=== PATIENT | female | born 1965 | race Caucasian/White ===

== ENCOUNTER 2020-01-17 08:58 | Outpatient (CLI) | payer OTHER, SELFPAY ==
--- NOTE | ~2020-01-17 | XR_ITS ---
EXAMINATION:XR_CERV2-3V_CR DATE: 01/17/2020 09:51 INDICATION: Neck pain TECHNIQUE: AP, lateral, lateral swimmers and odontoid views of the cervical spine are provided. COMPARISON: 02/02/2019 FINDINGS: Changes of fusion from C5 through C7 are again noted. There is unchanged moderate loss of i ntervertebral disc space height at C4-5 and C7-T1. No fracture is identified. The odontoid is intact. There is moderate to severe multilevel facet osteoarthritis. The prevertebral soft tissues are james l. IMPRESSION: 1. Moderate cervical spondylosis and changes of fusion without acute findings or significant interval change. Reviewed, dictated and finalized at location A. IMPRESSION: 1. Moderate cervical spondylosis and changes of fusion without acute findings o r significant interval change.
--- NOTE | ~2020-01-17 | XR_ITS ---
EXAMINATION: XR lumbar spine 2-3V DATE: 01/17/2020 09:54 INDICATION: Low back pain TECHNIQUE: Anteroposterior and lateral views of the lumbar spine, and cone-down lateral view of the l umbosacral junction were obtained. COMPARISON: 05/03/2017 FINDINGS: There are 3 mm of stable anterolisthesis of L4 on L5. The vertebral body heights and interv ertebral disc spaces are maintained. Degenerative osteophytes project from the anterior endplates of multiple vertebral bodies. There is moderate facet osteoarthritis throughout the lumbar spine. Phlebo liths are noted in the pelvis. The bowel gas pattern is normal. IMPRESSION: 1. Moderate lumbar spondylosis without acute findings or significant interval change. Reviewed, dictated and finalized at location A. IMPRESSION: 1. Moderate lumbar spondylosis without acute findings or significant interval yeimi mckeon
== END 2020-01-17 08:59 | disposition home or self-care (01) ==
LOC: CHSIMG 09:00
PROVIDERS: PCP Family Medicine; Visit Provider Family Medicine
DX: M54.2 Cervicalgia (principal); M54.5 Low back pain
CPT/HCPCS: 72040; 72100

== ENCOUNTER → 2020-02-27 08:44 | Outpatient (CLI) | payer OTHER, SELFPAY ==
--- NOTE | ~2020-02-27 | MR_ITS ---
EXAMINATION: MR cervical spine wo/w con DATE: 02/27/2020 09:53 INDICATION: Cervicalgia TECHNIQUE: Magnetic resonance imaging (MRI) of the cervical spine was performed without and with 17 m L Multihance intravenous contrast. Sequences included sagittal T2-weighted FSE, sagittal T2-weighted FS FSE, sagittal T1-weighted FSE, axial T2-weighted FSE, and axial T1-weighted SE. Postcontrast seque nces included sagittal T1-weighted FS FSE, and axial T1-weighted FS SE. COMPARISON: Cervical spine radiographs dated 02/02/2019 FINDINGS: There is straightening of the normal cervical lordosis. Interval anterior fusion at C5-C6 and C6-C7 w ith incorporated interbody bone graft. Unfused vertebral body heights are normal. Mild disc height lo ss at C3-C4 and moderate disc height loss at C4-C5 and C7-T1. Fibrovascular degenerative endplate mireille nges anteriorly at C7-T1. Marrow signal is otherwise normal. Cord signal intensity is normal. No abno rmally enhancing lesions identified. The following disc levels are specifically discussed: C2-C3: The disc does not extend beyond the endplate margin. There is no uncovertebral joint osteoarth ritis. There is moderate bilateral facet joint osteoarthritis. There is no neural foraminal stenosis. There is no central canal stenosis. C3-C4: The disc does not extend beyond the endplate margin. There is no uncovertebral joint osteoarth ritis. There is mild right and severe left facet joint osteoarthritis. There is mild left neural fora susie stenosis. There is no central canal stenosis. C4-C5: Mild eccentric to the left disc bulge. There is moderate bilateral uncovertebral joint osteoar thritis. There is moderate bilateral facet joint osteoarthritis. There is mild bilateral neural lucas inal stenosis. There is mild central canal stenosis with mild indention of the left ventral surface o f the cord. C5-C6: Disc space is fused. There is mild bilateral facet joint osteoarthritis. There is no neural fo raminal stenosis. There is mild central canal stenosis. C6-C7: Disc space is fused. There is mild bilateral facet joint osteoarthritis. There is no neural fo raminal stenosis. There is mild central canal stenosis. C7-T1: Annular fissure and central to right foraminal zone disc extrusion There is mild left and mode rate right uncovertebral joint osteoarthritis. There is mild bilateral facet joint osteoarthritis. Th ere is mild right neural foraminal stenosis. There is mild central canal stenosis. IMPRESSION: 1. Moderate cervical spondylosis with anterior fusion at C5-C6 and C6-C7. Reviewed, dictated and finalized at location A.
[2020-02-27 09:12] LABS: Estimated Glomerular Filt Rate > 60
== END ==
PROVIDERS: Visit Provider Family Medicine
DX: M47.892 Other spondylosis, cervical region (principal); Z98.1 Arthrodesis status
CPT/HCPCS: 72156; A9577

== ENCOUNTER 2020-03-08 05:35 | Emergency (ER) | payer OTHER, SELFPAY ==
--- NOTE | ~2020-03-08 | CT_ITS ---
EXAMINATION: CT BRAIN W/O DATE: 03/08/2020 06:33 INDICATION: Severe headache with vision changes TECHNIQUE: Computed tomography (CT) of the head was performed without intravenous contrast. The dose- length product was 605.33 mGy-cm. The mA was adjusted according to patient size. Iterative reconstruc tion technique was employed. COMPARISON: No prior studies for comparison. FINDINGS: Normal brain parenchymal volume for age. Normal lamb-white differentiation. No acute intrac ranial hemorrhage, infarction, mass or mass effect. No ventriculomegaly or midline shift. Midline sagittal images demonstrate a normal corpus callosum, c raniovertebral junction and sella turcica. Basilar cisterns are patent. Paranasal sinuses and mastoids are pneumatized. No depressed skull fractures. IMPRESSION: 1. No acute intracranial abnormality. Reviewed, dictated and finalized at location A.
[2020-03-08 05:47] VITALS: BP 124/86; PULSE 80; RESP 18; TEMP 36.4; O2SAT 98
--- NOTE | 2020-03-08 05:48 | ED.GENADULT ---
HPI - General Adult General Chief complaint: Unspecified <Jacky Rader MD - Last Filed: 03/08/20 06:08> Stated complaint: multiple complaints <Jacky Rader MD - Last Filed: 03/08/20 06:08> Time Seen by Provider: 03/08/20 05:48 <Jacky Rader MD - Last Filed: 03/08/20 06:08> History of Present Illness HPI narrative: History is limited by poor historian. It is very difficult to sort out the chronology of her history. She reports that she has chronic nerve problems . She seems to be getting these evaluatted as an outpatient. She reports dropping things and feeling unsteday. What brought her in today is dizziness and a severe headache. She also reports that her optic nerve is being compressed or inflammed because sometimes she can't see things when she looks up, but she can see them when she looks down. <Jacky Rader MD - Last Filed: 03/08/20 06:08> Related Data Home medications: Home Medications Medication Instructions Recorded Confirmed amlodipine 10 mg PO DAILY 03/08/20 03/08/20 sertraline [Zoloft] 20 mg PO DAILY 03/08/20 03/08/20 <Jacky Rader MD - Last Filed: 03/08/20 06:08> Allergies/adverse reactions: Allergies Allergy/AdvReac Type Severity Reaction Status Date / Time levofloxacin AdvReac Unknown FEARFUL Verified 12/25/18 12:27 IT WILL MAKE FIBROMYLAGIA WORE <Jacky Rader MD - Last Filed: 03/08/20 06:08> Review of Systems Constitutional: Constitutional: Reports body ache(s), Reports chills, Reports fatigue and Reports weakness <Jacky Rader MD - Last Filed: 03/08/20 06:08> Eyes: Eyes: Reports change in vision <Jacky Rader MD - Last Filed: 03/08/20 06:08> Cardiovascular: Cardiovascular: Reports chest pain <Jacky Rader MD - Last Filed: 03/08/20 06:08> Musculoskeletal: Musculoskeletal: Reports back pain <Jacky Rader MD - Last Filed: 03/08/20 06:08> Neurologic: Reports abnormal gait, Reports numbness, Reports tingling and Reports weakness <Jacky Rader MD - Last Filed: 03/08/20 06:08> [facility] Past Medical History Medical History: Medical History (Updated 03/08/20 @ 08:39 by Juana Chan MD) Fibromyalgia HTN (hypertension) <Jacky Rader MD - Last Filed: 03/08/20 06:08> Surgical History Surgical History: Surgical History (Updated 03/08/20 @ 06:06 by Jacky Rader MD) Hx of cholecystectomy <Jacky Rader MD - Last Filed: 03/08/20 06:08> Family History Family History: Family History (Updated 04/12/18 @ 14:43 by DOCTOR UNKNOWN) Other Carcinoma of colon Family history of Alzheimer's disease Family history of cardiovascular disease Hypertension <Jacky Rader MD - Last Filed: 03/08/20 06:08> Social History Social History: Social History Smoking status: Current every day smoker Alcohol intake: current <Jacky Rader MD - Last Filed: 03/08/20 06:08> Exam Const: General: healthy appearing, no acute distress and alert <Jacky Rader MD - Last Filed: 03/08/20 06:08> Orientation/consciousness: patient oriented x3 <Jacky Rader MD - Last Filed: 03/08/20 06:08> HENMT: Head: normal to inspection <Jacky Rader MD - Last Filed: 03/08/20 06:08> Ears: TM's normal bilaterally <Jacky Rader MD - Last Filed: 03/08/20 06:08> Eyes: Pupils: Equal, round and reactive pupils present <Jacky aRder MD - Last Filed: 03/08/20 06:08> EOM: EOMs intact bilaterally <Jacky Rader MD - Last Filed: 03/08/20 06:08> Neck: Neck: normal visual inspection and no lymphadenopathy <Jacky Rader MD - Last Filed: 03/08/20 06:08> Resp: Effort & Inspection: normal respiratory effort <Jacky Rader MD - Last Filed: 03/08/20 06:08> Auscultation: clear to auscultation bilaterally, no rales, no rhonchi and no wheezes <Jacky Rader MD - Last Filed: 02/27
--- NOTE | 2020-03-08 08:07 | PC.NURSE ---
received report from Jose Roberto. Patient here with KIM. Previous notes and assessments reviewed. Alert. Oriented. Concerned for germs and Covid. wants to go home when scan resulted.
[2020-03-08 08:45] VITALS: BP 128/76; PULSE 82; RESP 18; O2SAT 100
== END 2020-03-08 08:47 | disposition home or self-care (01) ==
PROVIDERS: Emergency Provider Emergency Medicine; PCP Family Medicine
DX: R51.9 Headache, unspecified (principal); I10 Essential (primary) hypertension; M79.7 Fibromyalgia; F17.200 Nicotine dependence, unspecified, uncomplicated
CPT/HCPCS: 70450; 99284

== ENCOUNTER 2020-03-18 08:06 | Outpatient (CLI) | payer OTHER, SELFPAY ==
--- NOTE | ~2020-03-18 | MR_ITS ---
EXAMINATION: MR brain/brain stem wo/w con DATE: 03/18/2020 09:01 INDICATION: Headache. Vision changes. TECHNIQUE: Magnetic resonance imaging (MRI) of the brain and brainstem was performed without and with 18 cc MultiHance intravenous contrast. Sequences included sagittal and axial T1-weighted SE, axial d iffusion-weighted FS SE, axial T2*-weighted GRE, axial T2-weighted FLAIR Propeller, and axial T2-weig hted Propeller. Apparent diffusion coefficient (ADC) maps were created. COMPARISON: CT dated 03/18/2020. FINDINGS: Normal brain parenchymal volume. There are scattered mild periventricular and subcortical w stef matter changes, most likely related to small vessel ischemic disease (microangiopathy). No ventr iculomegaly or midline shift. No evidence for acute intracranial infarction or hemorrhage. No abnorma l masses or enhancement. Orbits are symmetric without disconjugate gaze. Paranasal sinuses are unrema rkable. Structures of the posterior fossa including 7/8th cranial nerve complexes are normal. Midline sagittal image is unremarkable. No abnormal enhancement. IMPRESSION: 1. No acute intracranial abnormality. 2: Chronic age-related findings. Reviewed, dictated and finalized at location B.
== END 2020-03-18 08:07 | disposition home or self-care (01) ==
PROVIDERS: PCP Family Medicine; Visit Provider Family Medicine
DX: R51.9 Headache, unspecified (principal)
CPT/HCPCS: 70553; A9577

== ENCOUNTER 2020-04-22 09:22 | Outpatient (CLI) | payer OTHER, SELFPAY ==
--- NOTE | ~2020-04-22 | MM_ITS ---
EXAMINATION: MM screening raji BI w marino HISTORY: Screening mammogram TECHNIQUE: Craniocaudal and mediolateral oblique 3-D tomosynthesis images were obtained and synthetic 2-D images were generated. CAD analysis was submitted and interpreted. COMPARISON: 07/10/2018 bilateral diagnostic mammogram and left breast ultrasound 09/16/2016, 01/02/2015 bilateral digital screening mammogram examinations BREAST PARENCHYMAL COMPOSITION: The breasts are almost entirely fatty. FINDINGS: There is no evidence of suspicious mass, calcification, or architectural distortion to sugg est malignancy in either breast. There has been no suspicious interval change. IMPRESSION: 1. No mammographic evidence of malignancy. 2. Recommend routine screening mammography in one year. BI-RADS Category 1: Negative Reviewed, dictated and finalized at location A. RVISOR SOAKERS
== END 2020-04-22 09:23 | disposition home or self-care (01) ==
LOC: CHSIMG 09:23
PROVIDERS: PCP Family Medicine; Visit Provider Family Medicine
DX: Z12.31 Encounter for screening mammogram for malignant neoplasm of breast (principal)
CPT/HCPCS: 77063; 77067

== ENCOUNTER 2020-07-24 10:03 | Outpatient (CLI) | payer OTHER, SELFPAY ==
--- NOTE | ~2020-07-24 | XR_ITS ---
XR ribs LT 2V w CXR 2V DATE: 07/24/2020 10:30 INDICATION: Chest pain under breast for one year. Smoker. TECHNIQUE: PA and lateral chest. 3 views of the left ribs. COMPARISON: 04/30/2019 2 view chest FINDINGS: Normal heart size. No hilar or mediastinal enlargement. No pulmonary infiltrate or consolid ation, pleural effusion or pulmonary vascular congestion or pneumothorax. Diffuse osteopenia. There is degenerative spurring of the thoracic spine. No displaced left rib fracture or bone destruction is evident. Surgical clips, right upper quadrant, consistent with cholecystectomy. IMPRESSION: No displaced left rib fracture or bone destruction No active cardiopulmonary disease Reviewed, dictated and finalized at location A. TECHNICIAN
== END 2020-07-24 10:04 | disposition home or self-care (01) ==
LOC: CHSIMG 10:05
PROVIDERS: PCP Family Medicine; Visit Provider Family Medicine
DX: R07.89 Other chest pain (principal)
CPT/HCPCS: 71046; 71100

== ENCOUNTER 2020-07-29 09:38 | Emergency (ER) | payer OTHER, SELFPAY ==
--- NOTE | ~2020-07-29 | CT_ITS ---
EXAMINATION: CT abdomen pelvis wo con EXAM DATE: 07/29/2020 11:14 INDICATION: Left flank pain. TECHNIQUE: Spiral CT of the abdomen and pelvis was performed without contrast. Axial, coronal and sag ittal images were reviewed. The dose-length product (DLP) for this examination was 758.26 mGy-cm. T he exposure was tailored according to patient size (auto mA exposure control), and iterative reconstr uction (ASIR) was used as additional dose reduction technique. Comparison is made to prior examinatio n from 09/19/2017. FINDINGS: There is no nephrolithiasis or hydronephrosis. The uterus is unremarkable. The bladder is unremarkable. The liver, spleen, adrenal glands and pancreas are unremarkable. There are cholecy stectomy clips. There is no retroperitoneal or pelvic lymphadenopathy. There are surgical changes consistent with appendectomy. The stomach and small bowel are unremarkab le. There is expected amount of colonic stool. No free intraperitoneal gas. The heart is normal in size. There are no pericardial or pleural effusions. The lung bases are unremarkable. There are no osteoblastic or osteolytic lesions identified. IMPRESSION: 1. No nephrolithiasis, hydronephrosis or acute intra-abdominal findings. Reviewed, dictated and finalized at location A. SPRING STRIP INSPECTOR
--- NOTE | ~2020-07-29 | XR_ITS ---
EXAMINATION: XR abdomen/kub 1V EXAM DATE: 07/29/2020 11:19 INDICATION: left flank pain . TECHNIQUE: Frontal projection(s) of the abdomen for interpretation. Correlation is made to CT perform ed immediately prior. FINDINGS: There is expected amount of colonic stool and gas. No small bowel dilation, nonobstructiv e bowel gas pattern. Calcifications in the pelvis are believed to be phleboliths. There is no orga nomegaly suspected. There are mild bony degenerative changes. Lung bases unremarkable. There are ch olecystectomy clips. IMPRESSION: Unremarkable abdomen x-ray exam. Reviewed, dictated and finalized at location A. O VISUAL PROJECT MANAGER
--- NOTE | ~2020-07-29 | XR_ITS ---
EXAMINATION: XR chest 2V DATE: 07/29/2020 10:52 INDICATION: Left flank pain. TECHNIQUE: Frontal and lateral views of the chest were obtained. COMPARISON: Chest 2 views 07/24/2020, CT abdomen and pelvis 09/19/2017 FINDINGS: The chest demonstrates clear lungs without pneumonia, pleural effusion, or pneumothorax. Th e heart size is normal. Surgical clips in the right upper quadrant are likely from cholecystectomy. IMPRESSION: 1. No acute cardiopulmonary disease. Reviewed, dictated and finalized at location A. UNTING TEACHER
[2020-07-29 09:53] VITALS: BP 145/104; PULSE 116; RESP 18; TEMP 36.4; O2SAT 95
--- NOTE | 2020-07-29 10:21 | ECG_ITS ---
Measurements Intervals [place] Rate: 77 P: 59 FL: 159 QRS: 35 QRSD: 90 T: 49 QT: 372 QTc: 423 Interpretive Statements SINUS RHYTHM NONSPECIFIC T-WAVE ABNORMALITY- INFERIOR LEADS BASELINE ARTIFACT- I, II, III, AVR, AVL, AVF BORDERLINE ECG Electronically Signed On 07-29-2020 12:09:40 PAINTER INTERIOR FINISH by Wes Cedeno D.O.
[2020-07-29 10:43] LABS: Alveolar/Arterial O2 Gradient 26.5 mmHg; Base Excess ABG -1.2 mEq/l (+/-2.0); Carboxyhemoglobin 2.5 % THb (0-2.0); Fractional Inspired Oxygen 21 %; HCO3 ABG 22.8 mEq/l (22.0-26.0); Methemoglobin ABG 0.2 %THb (0-1.5); Oxygen Content ABG 20.4 %vol (16.0-22.0); Oxygen Saturation ABG 96.1 % (95.0-100.0); Oxyhemoglobin 93.1 % THb (90.0-100.0); PCO2 ABG 36.1 mmHg (35.0-45.0); PO2 FiO2 Ratio Arterial Blood 3.81 %; Reduced Hemoglobin 4.2 %THb (0-5.0); Total Hemoglobin 15.6 g/dL (12.0-18.0); pH ABG 7.418 (7.350-7.450)
[2020-07-29 10:44] LABS: Basophils Absolute Auto 0.1 K/mm3 (0.0-0.1); Basophils Percent Auto 0.8 % (0.2-1.2); Eosinophils Absolute Auto 0.1 K/mm3 (0-0.3); Eosinophils Percent Auto 0.9 % (0-4.4); Hematocrit 42.7 % (37.0-47.0); Hemoglobin 15.1 g/dL (12.0-15.0); Immature Granulocyte Absolute 0.03 K/mm3 (0.00-0.031); Immature Granulocyte Percent A 0.4 % (0-0.5); Lymphocytes Absolute Auto 1.27 K/mm3 (0.9-3.2); Lymphocytes Percent Auto 16.4 % (18.3-44.2); Mean Corpuscular HGB Conc 35.4 g/dl (32-36); Mean Corpuscular Hemoglobin 31.9 pg (26-34); Mean Corpuscular Volume 90.1 fl (80-100); Mean Platelet Volume 9.1 fl (7.4-10.4); Monocytes Absolute Auto 0.6 K/mm3 (0.1-0.6); Monocytes Percent Auto 7.1 % (2.6-8.5); Neutrophils Absolute Auto 5.8 K/mm3 (1.3-6.7); Neutrophils Percent Auto 74.4 % (45.5-73.1); Platelet Count Result 255 k/mm3 (150-375); Red Blood Count 4.74 M/mm3 (4.2-5.4); Red Cell Distribution Width 12.6 % (11.5-14.5); White Blood Count 7.8 K/mm3 (4.5-10.0)
[2020-07-29 10:44] LABS: Device ROOM AIR; Modified Allen's Test Pass; Site Drawn LEFT RADIAL
[2020-07-29 10:52] LABS: Add Urine Microscopic? YES; Appearance Urine Clear (Clear); Bacteria Urine Trace /hpf; Bilirubin Urine Negative (Negative); Blood Urine 2+ (Negative); Calcium Oxalate Crystals Urine Many /hpf; Color Urine Yellow (Yellow); Glucose Urine UA Negative (Negative); Ketones Urine Negative (Negative); Leukocyte Esterase Ur Negative LEU/UL (Negative); Mucus Urine Heavy /lpf; Nitrate Urine Negative (Negative); Protein Urine 1+ mg/dL (Negative); Specific Grav Ur 1.019 (1.001-1.035); Squamous Epithelial Cell Urine Few /hpf (Few)
[2020-07-29 10:53] LABS: INR 0.9; Partial Thromboplastin Time 30.6 SECONDS (22.3-36.8); Prothrombin Time 13.1 Seconds (11.1-14.7)
[2020-07-29 10:56] LABS: Alanine Aminotransferase 27 U/L (4-35); Albumin Level 4.5 g/dL (3.5-5.1); Alkaline Phosphatase 87 U/L (38-126); Anion Gap 7 mmol/L (8-16); Aspartate Amino Transferase 29 U/L (14-36); Bilirubin,Total 0.6 mg/dL (0.2-1.3); Blood Urea Nitrogen 13 mg/dL (7-17); Calcium 9.1 mg/dL (8.4-10.2); Carbon Dioxide 28 mmol/L (22-30); Chloride 105 mmol/L (98-107); D Dimer 0.31 ug/mL (<0.48); Estimated CRCL calculation 82 ml/min; Estimated Glomerular Filt Rate > 60; Glucose 117 mg/dL (65-105); Lipase 100 U/L (23-300); Magnesium 1.8 mg/dL (1.6-2.3); Potassium 3.2 mmol/L (3.4-5.0); Sodium 140 mmol/L (137-145)
[2020-07-29 11:07] LABS: Troponin I < 0.012 ng/mL (0.000-0.034)
[2020-07-29] MEDS: LACTATED RINGERS 1,000 ML 999 ML IV CONT (11:26)
[2020-07-29 11:27] VITALS: BP 164/69; PULSE 76
[2020-07-29] MEDS: POTASSIUM CHLORIDE 20 MEQ TABLET 40 MEQ PO (11:27)
[2020-07-29 11:29] VITALS: BP 147/75; PULSE 80
[2020-07-29 11:31] VITALS: BP 154/86; PULSE 80
[2020-07-29 11:32] VITALS: BP 154/86; PULSE 80; RESP 18; O2SAT 99
--- NOTE | 2020-07-29 11:40 | ED.ABDPAIN ---
HPI - Abdominal Pain General Chief Complaint: Abdominal Pain Stated Complaint: left flank pain Time Seen by Provider: 07/29/20 09:46 Source: patient Mode of arrival: ambulatory Limitations: no limitations History of Present Illness HPI narrative: This is a 55 year old female who presents for evaluation of left side pain. She states this pain has been present for 1 year but it has gotten worse over the past few days. She states she is having difficulty sleeping because her pain is worse when she lays on it. She denies any trauma. She states she has been evaluated by her PCP for this but it is getting worse. She reports mild cough and shortness of breath. She also reports dizziness that has been present for years. She has intermittent headache. She is currently being evaluated by a neurology for alot of her chronic issues. Related Data Home Medications Medication Instructions Recorded Confirmed sertraline [Zoloft] 20 mg PO DAILY 03/08/20 03/08/20 omeprazole 20 mg PO BID 07/29/20 Allergies Allergy/AdvReac Type Severity Reaction Status Date / Time levofloxacin AdvReac Unknown FEARFUL Verified 07/29/20 10:03 IT WILL MAKE FIBROMYLAGIA WORE Review of Systems Review of Systems: All systems reviewed & are unremarkable except as noted in HPI and below Constitutional: Constitutional: Denies chills, Reports fatigue and Denies fever(s) Eyes: Eyes: Denies change in vision ENT: Denies sore throat Cardiovascular: Cardiovascular: Denies chest pain, Denies rapid heart rate and Denies radiating jaw, neck or arm pain Respiratory: Respiratory: Reports cough and Reports dyspnea Gastrointestinal: Gastrointestinal: Reports abdominal pain, Reports diarrhea, Reports nausea and Denies vomiting Genitourinary: Genitourinary: Reports hematuria (for years) Neurologic: Reports dizziness PMFSH Past Medical History Medical History (Updated 07/29/20 @ 13:03 by Anahi Doll MD) Fibromyalgia HTN (hypertension) Surgical History Surgical History (Updated 03/08/20 @ 06:06 by Jacky Rader MD) Hx of cholecystectomy Family History Family History (Updated 04/12/18 @ 14:43 by DOCTOR UNKNOWN) Other Carcinoma of colon Family history of Alzheimer's disease Family history of cardiovascular disease Hypertension Social History Social History Smoking status: Current every day smoker Alcohol intake: current Gender identity (if verbalized by the patient): Female Exam Const: General: no acute distress and alert Orientation/consciousness: patient oriented x3 HENMT: Ears: TM's normal bilaterally Eyes: Conjunctivae: conjunctivae normal Pupils: Equal, round and reactive pupils present EOM: EOMs intact bilaterally Neck: Neck: normal visual inspection Chest: Chest palpation & inspection: normal inspection of the chest Resp: Effort & Inspection: normal respiratory effort and no retractions Auscultation: clear to auscultation bilaterally Cardio: Rate: regular rate Rhythm: regular rhythm Heart sounds: no murmurs GI: GI Palp: Yes Soft to palpation, Yes Tenderness to palpation present (GI) (LUQ) and No Guarding due to palpation present (GI) Auscultation: normal bowel sounds Back/Spine/Pelvis: Back: no CVA tenderness Skin: General skin exam: normal color Rashes: no rashes Neuro: General: patient oriented x3 and moves all extremities Psych: Mental Status: mental status grossly normal Affect: normal affect Course Reevaluation(s) Reevaluation #1: Patient states she feels better and she thinks it is muscular. She reports her pain improved with toradol. She was given potassium supplementation Date: 07/29/20 Time: 12:59 Vital Signs Vital signs: Vital Signs Temperature 97.6 F 07/29/20 09:53 Pulse Rate 116 H 07/29/20 09:53 Respiratory Rate 18 07/29/20 09:53 Blood Pressure 145/104 H 07/29/20 09:53 Pulse Oximetry 95 07/29/20 09:53 Temperatu
[2020-07-29] MEDS: KETOROLAC 30 MG/ML VIAL (*BKC) IV PUSH (11:45)
[2020-07-29 11:54] LABS: Amphetamine Screen Urine Negative (Negative); Barbiturate Screen Urine Negative (Negative); Benzodiazepines Screen Urine Negative (Negative); Cannabinoid Screen Urine Positive (Negative); Cocaine Screen Urine Negative (Negative); Methadone Screen Urine Negative (Negative); Opiate Screen Urine Positive (Negative); Phencyclidine Screen Urine Negative (Negative)
[2020-07-29 13:10] VITALS: BP 133/75; PULSE 78; RESP 16; O2SAT 98
== END 2020-07-29 13:11 | disposition home or self-care (01) ==
PROVIDERS: Emergency Provider General Practice; PCP Family Medicine
DX: R10.9 Unspecified abdominal pain (principal); M79.7 Fibromyalgia; I10 Essential (primary) hypertension; F17.210 Nicotine dependence, cigarettes, uncomplicated; E87.6 Hypokalemia; R94.31 Abnormal electrocardiogram [ECG] [EKG]
CPT/HCPCS: 36415; 36600; 71046; 74018; 74176; 80053; 80307; 81001; 82375; 82805; 83050; 83690; 83735; 84484; 85025; 85380; 85610; 85730; 93005; 96361; 96374; 99284; A9270; J1885; J7120

== ENCOUNTER 2020-08-03 14:05 | Emergency (ER) | payer OTHER, SELFPAY ==
--- NOTE | ~2020-08-03 | XR_ITS ---
EXAMINATION: XR barium swallow DATE: 08/03/2020 16:21 INDICATION: Dysphagia TECHNIQUE: The patient drank thick barium, gas-producing crystals, and thin barium. Fluoroscopy of th e hypopharynx and esophagus was performed. Fluoroscopy exposure time was 1.2 minutes. The DAP for thi s procedure was 5.016 Gycm2. COMPARISON: None. FINDINGS: There is no mass or stricture of the esophagus. There appears to be a tiny posterior divert iculum of the esophagus in the midline at the level of C5-6. Esophageal motility is normal. There is no hiatal hernia. There was no gastroesophageal reflux with provocative maneuvers. IMPRESSION: 1. Questionable tiny posterior diverticulum of the esophagus at the level of C5-6. Reviewed, dictated and finalized at location A. ERMAKER APPRENTICE IMPRESSION: 1. Questionable tiny posterior diverticulum of the esophagus at the level of C5 -6.
[2020-08-03 14:08] VITALS: BP 149/87; PULSE 118; RESP 22; TEMP 36.3; O2SAT 98
--- NOTE | 2020-08-03 15:18 | ED.GENADULT ---
HPI - General Adult General Chief complaint: Unspecified Stated complaint: unable to swallow Time Seen by Provider: 08/03/20 14:07 Source: patient and old records reviewed Mode of arrival: ambulatory Limitations: no limitations History of Present Illness HPI narrative: Patient is a 55-year-old female who presents to emergency department concerned that she is having difficulty swallowing feeling like her pills are getting stuck in her throat patient had large work-up the other day due to concern of belly pain all of which was unremarkable patient has follow-up in the near future with gastroenterology on arrival patient is anxious appearing about her health concerns but appears to be not in distress and is able to tolerate liquids and food Related Data Home Medications Medication Instructions Recorded Confirmed sertraline [Zoloft] 20 mg PO DAILY 03/08/20 03/08/20 omeprazole 20 mg PO BID 07/29/20 Allergies Allergy/AdvReac Type Severity Reaction Status Date / Time levofloxacin AdvReac Unknown FEARFUL Verified 08/03/20 14:33 IT WILL MAKE FIBROMYLAGIA WORE Review of Systems Review of Systems: All systems reviewed & are unremarkable except as noted in HPI and below PMFSH Past Medical History Medical History Fibromyalgia HTN (hypertension) Surgical History Surgical History Hx of cholecystectomy Family History Family History (Updated 04/12/18 @ 14:43 by DOCTOR UNKNOWN) Other Carcinoma of colon Family history of Alzheimer's disease Family history of cardiovascular disease Hypertension Social History Social History Smoking status: Current every day smoker Alcohol intake: current Gender identity (if verbalized by the patient): Female Exam Narrative: Exam Narrative: GENERAL: Well-appearing, well-nourished, and in no acute distress. HEAD: Normocephalic, atraumatic. EYES: PERRLA and EOMI. ENT: Nares clear, no rhinorrhea or epistaxis. Mucous membranes moist. CHEST: Clear to auscultation. No respiratory distress. No wheezes rales or rhonchi HEART: Regular rate and rhythm. No murmur heard. Normal peripheral pulses. ABDOMEN: Soft, nontender, nondistended EXTREMITIES: Normal range of motion. No edema. SKIN: Warm, dry, no rash. NEURO: No focal deficits. Alert and oriented x3. Cranial nerves II through XII grossly intact PSYCH: Normal mood and affect. Course Course Emergency Course: Patient able to tolerate p.o. intake was found to have potentially a small diverticulum may be as an etiology for her issues patient felt appropriate for outpatient reevaluation with continued plan to follow-up with gastroenterology and primary care Vital Signs Vital signs: Vital Signs Temperature 97.4 F L 08/03/20 14:08 Pulse Rate 118 H 08/03/20 14:08 Respiratory Rate 22 H 08/03/20 14:08 Blood Pressure 149/87 H 08/03/20 14:08 Pulse Oximetry 98 08/03/20 14:08 Temperature 97.4 F L 08/03/20 14:08 Pulse Rate 118 H 08/03/20 14:08 Respiratory Rate 22 H 08/03/20 14:08 Blood Pressure 149/87 H 08/03/20 14:08 Pulse Oximetry 98 08/03/20 14:08 Medical Decision Making MDM Narrative Medical decision making narrative: ABCs and vital signs intact and stable patient will be referred to GI for further evaluation of her swallowing issues and abdominal issues Vital Signs Vital Signs: Vital Signs Temperature 97.4 F L 08/03/20 14:08 Pulse Rate 118 H 08/03/20 14:08 Respiratory Rate 22 H 08/03/20 14:08 Blood Pressure 149/87 H 08/03/20 14:08 Pulse Oximetry 98 08/03/20 14:08 Temperature 97.4 F L 08/03/20 14:08 Pulse Rate 118 H 08/03/20 14:08 Respiratory Rate 22 H 08/03/20 14:08 Blood Pressure 149/87 H 08/03/20 14:08 Pulse Oximetry 98 08/03/20 14:08 Discharge Plan Discharge Clinical
== END 2020-08-03 17:35 | disposition home or self-care (01) ==
PROVIDERS: Emergency Provider Emergency Medicine; PCP Family Medicine
DX: R13.10 Dysphagia, unspecified (principal); M79.7 Fibromyalgia; I10 Essential (primary) hypertension; F17.200 Nicotine dependence, unspecified, uncomplicated
CPT/HCPCS: 74220; 99283

== ENCOUNTER 2020-08-13 12:53 | Emergency (ER) | payer OTHER, SELFPAY ==
--- NOTE | ~2020-08-13 | XR_ITS ---
EXAMINATION: XR chest 2V EXAM DATE: 08/13/2020 14:10 INDICATION: Irregular heartbeat. Shortness of breath. TECHNIQUE: Frontal and lateral projections of the chest obtained and reviewed. Comparison is made to prior examination from 07/29/2020. FINDINGS: The lungs are clear. There are no pleural effusions. The cardiomediastinal silhouette is within normal limits. There is no pneumothorax suspected. Mild thoracic spondylosis. There are chol ecystectomy clips. IMPRESSION: No acute cardiopulmonary findings. Reviewed, dictated and finalized at location A.
--- NOTE | 2020-08-13 12:55 | ECG_ITS ---
Measurements Intervals [place] Rate: 84 P: 56 IN: 146 QRS: 17 QRSD: 77 T: 57 QT: 340 QTc: 402 Interpretive Statements SINUS RHYTHM POSSIBLE LEFT ATRIAL ENLARGEMENT BASELINE ARTIFACT- I, II, III, AVR, AVL BORDERLINE ECG Electronically Signed On 08-13-2020 13:03:37 CDT by Wes Cedeno D.O.
[2020-08-13 13:09] VITALS: BP 138/76; PULSE 90; RESP 18; TEMP 36.5; O2SAT 98
[2020-08-13 13:23] LABS: Basophils Absolute Auto 0.1 K/mm3 (0.0-0.1); Basophils Percent Auto 0.6 % (0.2-1.2); Eosinophils Absolute Auto 0.2 K/mm3 (0-0.3); Eosinophils Percent Auto 2.1 % (0-4.4); Hematocrit 42.3 % (37.0-47.0); Immature Granulocyte Absolute 0.02 K/mm3 (0.00-0.031); Immature Granulocyte Percent A 0.3 % (0-0.5); Lymphocytes Absolute Auto 1.56 K/mm3 (0.9-3.2); Lymphocytes Percent Auto 19.6 % (18.3-44.2); Mean Corpuscular HGB Conc 35.5 g/dl (32-36); Mean Corpuscular Hemoglobin 32.2 pg (26-34); Mean Corpuscular Volume 90.8 fl (80-100); Mean Platelet Volume 9.4 fl (7.4-10.4); Monocytes Absolute Auto 0.6 K/mm3 (0.1-0.6); Monocytes Percent Auto 7.2 % (2.6-8.5); Neutrophils Absolute Auto 5.6 K/mm3 (1.3-6.7); Neutrophils Percent Auto 70.2 % (45.5-73.1); Platelet Count Result 258 k/mm3 (150-375); Red Blood Count 4.66 M/mm3 (4.2-5.4); White Blood Count 7.9 K/mm3 (4.5-10.0)
[2020-08-13 13:32] LABS: INR 0.9; Prothrombin Time 12.8 Seconds (11.1-14.7)
[2020-08-13 13:33] LABS: Partial Thromboplastin Time 30.9 SECONDS (22.3-36.8)
[2020-08-13 13:35] LABS: Anion Gap 8 mmol/L (8-16); Blood Urea Nitrogen 10 mg/dL (7-17); Calcium 9.2 mg/dL (8.4-10.2); Carbon Dioxide 24 mmol/L (22-30); Chloride 107 mmol/L (98-107); Estimated CRCL calculation 70 ml/min; Estimated Glomerular Filt Rate > 60; Glucose 115 mg/dL (65-105); Potassium 3.9 mmol/L (3.4-5.0); Sodium 139 mmol/L (137-145)
[2020-08-13 13:46] LABS: Troponin I < 0.012 ng/mL (0.000-0.034)
[2020-08-13 15:07] VITALS: BP 142/78; PULSE 78; RESP 22; O2SAT 98
--- NOTE | 2020-08-13 15:08 | PC.NURSE ---
patient presents today with complaints ranging from weight loss, to dry mouth, to palpations. reports abd pain intermittenly for several months. states has seen primary md several times for various complaints but they just dont listen to me . became tearful during assessment and reported more symptoms including swelling to right arm and abd.
[2020-08-13 16:00] VITALS: BP 123/75; PULSE 78; RESP 18; O2SAT 99
[2020-08-13 16:27] LABS: Troponin I < 0.012 ng/mL (0.000-0.034)
--- NOTE | 2020-08-13 16:39 | ED.ARRPALP ---
HPI - Arrhythmia/Palpitations General Chief Complaint: Arrhythmia/Palpitations Stated Complaint: irregular heart beat, sob Time Seen by Provider: 08/13/20 14:57 History of Present Illness HPI narrative: Patient is a 55-year-old female who presents ER with palpitations. 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 Lasted 1 minute or less. No chest pain or pressure. Patient without nausea vomiting or shortness of breath. Patient does report chronic reflux and epigastric discomfort that is unchanged. Has not followed up with PCP for these issues. She takes omeprazole and Levsin for esophageal/reflux issues. Related Data Home Medications Medication Instructions Recorded Confirmed sertraline [Zoloft] 20 mg PO DAILY 03/08/20 03/08/20 omeprazole 20 mg PO BID 07/29/20 Allergies Allergy/AdvReac Type Severity Reaction Status Date / Time levofloxacin AdvReac Unknown FEARFUL Verified 08/03/20 14:33 IT WILL MAKE FIBROMYLAGIA WORE Review of Systems Review of Systems: All systems reviewed & are unremarkable except as noted in HPI and below Constitutional: Constitutional: Denies chills, Denies fever(s) and Denies weakness ENT: Denies nasal congestion and Denies sore throat Cardiovascular: Cardiovascular: Denies chest pain, Denies rapid heart rate and Denies radiating jaw, neck or arm pain Comments: palpitatoins Respiratory: Respiratory: Denies cough, Denies dyspnea and Denies wheezing Gastrointestinal: Gastrointestinal: Reports abdominal pain (chronic), Denies diarrhea and Denies nausea PMFSH Past Medical History Medical History Fibromyalgia HTN (hypertension) Surgical History Surgical History Hx of cholecystectomy Family History Family History (Updated 04/12/18 @ 14:43 by DOCTOR UNKNOWN) Other Carcinoma of colon Family history of Alzheimer's disease Family history of cardiovascular disease Hypertension Social History Social History Smoking status: Current every day smoker Alcohol intake: current Gender identity (if verbalized by the patient): Female Exam Narrative: Exam Narrative: GENERAL: Well-appearing, well-nourished, and in no acute distress. HEAD: Normocephalic, atraumatic. CHEST: Clear to auscultation. No respiratory distress. HEART: Regular rate and rhythm. Normal peripheral pulses. ABDOMEN: Soft, nontender, nondistended. EXTREMITIES: Normal range of motion. No edema. SKIN: Warm, dry, no rash. NEURO: Alert and oriented x3. PSYCH: Normal mood and affect. Course Course Emergency Course: Recommend follow-up with PCP for further treatment evaluation. Discussed that she should discuss with her PCP whether she should obtain an outpatient Holter monitor. Vital Signs Vital signs: Vital Signs Temperature 97.7 F 08/13/20 13:09 Pulse Rate 90 08/13/20 13:09 Respiratory Rate 18 08/13/20 13:09 Blood Pressure 138/76 08/13/20 13:09 Pulse Oximetry 98 08/13/20 13:09 Temperature 97.7 F 08/13/20 13:09 Pulse Rate 78 08/13/20 15:07 Respiratory Rate 22 H 08/13/20 15:07 Blood Pressure 142/78 H 08/13/20 15:07 Pulse Oximetry 98 08/13/20 15:07 MDM - Arrhythmia/Palpitations Lab Data Result diagrams: 08/13/20 13:18 08/13/20 13:18 Labs: Lab Results 08/13/20 08/13/20 08/13/20 Range/Units 13:18 13:18 13:18 WBC 7.9 (4.5-10.0) K/mm3 RBC 4.66 (4.2-5.4) M/mm3 Hgb 15.0 (12.0-15.0) g/dL Hct 42.3 (37.0-47.0) % MCV 90.8 (80-100) fl MCH 32.2 (26-34) pg MCHC 35.5 (32-36) g/dl RDW 13.0 (11.5-14.5) % Plt Count 258 (150-375) k/mm3 MPV 9.4 (7.4-10.4) fl Immature Gran % (Auto) 0.3 (0-0.5) % Neut % (Auto) 70.2 (45.5-73.1) % Lymph % (Auto) 19.6 (18.3-44.2) % [place] % (Aut
[2020-08-13 17:45] VITALS: BP 140/70; PULSE 80; RESP 18; O2SAT 99
== END 2020-08-13 17:46 | disposition home or self-care (01) ==
PROVIDERS: General Practice; Emergency Provider Emergency Medicine; PCP Family Medicine
DX: R00.2 Palpitations (principal); I10 Essential (primary) hypertension; M79.7 Fibromyalgia; F17.200 Nicotine dependence, unspecified, uncomplicated; R94.31 Abnormal electrocardiogram [ECG] [EKG]
CPT/HCPCS: 36415; 71046; 80048; 84484; 85025; 85610; 85730; 93005; 99284

== ENCOUNTER 2020-09-26 08:38 | Outpatient (CLI) | payer OTHER, SELFPAY ==
--- NOTE | ~2020-09-26 | DEXA_ITS ---
Bone Density Report Name: Daria Contreras Age: 55 Sex: Female Ethnicity: White Date of : 1965 Indication: postmenopausal; screening for osteoporosis; prior fracture; Referring Provider: Pablo Tierney Study: Bone densitometry was performed. Exam Date: September 26, 2020 Accession number: [id number] Bone Density: Region BMD T-score Z-score Classification AP Spine(L1, L3, L4) 1.114 0.6 1.6 Normal Femoral Neck (Left) 0.681 -1.5 -0.5 Osteopenia Total Hip (Left) 0.792 -1.2 -0.6 Osteopenia Femoral Neck (Right) 0.665 -1.7 -0.6 Osteopenia Total Hip (Right) 0.817 -1.0 -0.4 Normal Femoral Neck Mean 0.673 -1.6 -0.6 Osteopenia Total Hip Mean 0.804 -1.1 -0.5 Osteopenia World Health Organization criteria for BMD impression classify patients as: Normal (T-score at or above -1.0), Osteopenia (T-score between -1.0 and -2.5), or Osteoporosis (T-score at or below -2.5). 10-year Fracture Risk: FRAX not reported because: Prior hip or vertebral fracture Clinical Information Provided by Patient: Have had a previous hip or vertebral fracture Has had a low trauma fracture Smokes Patient maximum height was 62 Menopause Age: 55 No regular weight bearing exercise Does not regularly consume dairy products Drinks caffeinated beverages Onset of menses at age 15 Number of children 1 Impression: The patient has low bone mass, based on the Right Femoral Neck T-score. The patient has risk factors, including: smoking, previous fracture. Discussion: INCREASED RISK OF FRACTURE DUE TO HISTORY OF FRACTURE. The patient's previous fracture puts the patient at high risk of a future fracture. In untreated patients, the risk of osteoporotic fracture increases approximately two-fold for each 1.0 SD decrease in T-score. Low bone density is not the only risk factor for fracture; also consider factors such as patient's age, frailty or poor health, risk of falling, risk of injury, previous osteoporotic fracture, family history of osteoporosis, cigarette smoking, low body weight, etc. Not everyone with a low trauma fracture has osteoporosis; osteomalacia and other metabolic bone disorders should also be considered. Patients who have osteoporosis should be evaluated for specific diseases and conditions (secondary causes) that may cause or contribute to bone loss and fracture risk. National Osteoporosis Foundation (NOF) recommends pharmacologic intervention for patients with a prior hip or vertebral fracture regardless of BMD T-score. The patient should follow a healthful lifestyle (good nutrition with adequate calcium and vitamin D, and appropriate weight-bearing exercise). Follow-Up: Consider a repeat BMD and Vertebral Fracture Assessment (VFA) exam in 2 years or sooner if medically necessary, to reassess this patien
== END 2020-09-26 08:39 | disposition home or self-care (01) ==
LOC: CHSIMG 08:39
PROVIDERS: PCP Family Medicine; Visit Provider Family Medicine
DX: Z78.0 Asymptomatic menopausal state (principal)
CPT/HCPCS: 77080

== ENCOUNTER 2020-12-03 14:21 | Outpatient (CLI) | payer OTHER, SELFPAY ==
[2020-12-03 16:13] LABS: SARS-CoV-2 RNA PCR Negative (Negative)
== END 2020-12-03 14:22 | disposition home or self-care (01) ==
LOC: CHSLAB 14:24
PROVIDERS: PCP Family Medicine; Visit Provider Family Medicine
DX: J00 Acute nasopharyngitis [common cold] (principal); Z20.822 Contact with and (suspected) exposure to COVID-19
CPT/HCPCS: C9803; U0003; U0005

== ENCOUNTER 2020-12-22 08:30 | Outpatient (RCR) | payer OTHER, SELFPAY ==
--- NOTE | 2020-11-19 08:52 | PTOPEVAL ---
PHYSICAL THERAPY EVALUATION AND PLAN OF CARE Thank you for referring Daria Contreras to [facility].? The patient is scheduled to be seen for therapy? 2x/week for 4 weeks. Please review, sign, date and return this plan of care PRADEEP. I agree with and certify that the following plan of care is medically necessary. Referring Physician Date Attending Provider: Keturah Correa Evaluation Outpatient Past Medical History Neurological History Hx Other Neurological Disorders Yes: c/o right facial numbness and also involves the right arm and 3 fingers Gastrointestinal History Hx Appendectomy Yes Hx Cholecystectomy Yes Reproductive History Hx Post Menopausal Yes Diagnosis cervical pain and radiulopathy Onset chronic Subjective Information Per patient, she had cervical Query Text:As Reported By Patient/ fusion 12 years ago at C5-6-7. Family She she reports sypmtoms that are similar to before that surgery but it is worse. She reports that the right side of her face is numb, she has pain and numbness in the right arm. She also reports new onset numbness in both arms. Reports she is in a constant pain including a shoot pain down the right side of her body and she states that she has pain in the right foot when she walks. Self Report Pain Assessment Right Spine, Cervical Reported Pain Level 5 Pain Radiation Left Arm,Right Arm Pain Frequency Chronic,Continuous Lowest Pain Intensity 5 Greatest Pain Intensity 10 Other Pain Aggravating Factors activity, walking Pain Behaviors Teary Eyed/Crying Pain Score Pain Score 5: Self Report Interventions Used Interventions Used By Clinicians Manual Therapy Techniques Cervical and Lumbar ROM Cervical ROM Cervical Extension (0-70) 25 Query Text:Active in Degrees Cervical Rotation Right (0-90) 44 Query Text:Active in Degrees Cervical Rotation Left (0-90) 60 Query Text:Active in Degrees Upper Extremity Range of Motion General Upper Extremity Range of Motion Reason Not Measured WFL/Left,WFL/Right Gross Upper Extremity Range of Motion reports right shoulder is very Comments stiff and tight Upper Extremity Muscle Strength Testing Scapular/Shoulder Left Shoulder Flexion Strength 4+ Good + Shoulder Abduction Strength
--- NOTE | 2020-11-24 11:02 | PCPTNOTE ---
Patient called & cancelled scheduled appointment this date. Has to take her mother to the doctor.
--- NOTE | 2020-12-03 08:35 | PCPTNOTE ---
Patient no showed to appointment this date. Patient was called and states she got her dates mixed up but she is sick and can't come in anyway. Confirmed upcoming appointment for December 09 at 8:30.
--- NOTE | 2020-12-09 08:35 | PCPTNOTE ---
Patient called & cancelled scheduled appointment this date due to being sick. Stated she has walking pneumonia and MD wants her to stay home and be on bedrest.
--- NOTE | 2020-12-22 09:48 | PTOPEVAL ---
PHYSICAL THERAPY DISCHARGE NOTE Thank you for referring Daria Contreras to [facility].? Please review, sign, date and return this plan of care PRADEEP. I agree with and certify that the following plan of care is medically necessary. Referring Physician Date Attending Provider: GRADY Brower cervical pain and radiulopathy Onset chronic Subjective Information continues to report severe Query Text:As Reported By Patient/ symptoms; not able to identify Family if the symptoms are improved by therapy but she does feel stronger. She continues to have significant concern over the symptoms in her face. She has significant swelling in the right cheek, a ringing in the right ear, numbness in the lower half of her face. She continues to have numbness and tingling in bilateral arms with the right having more tingling than the right. Right Spine, Cervical Reported Pain Level 6 Pain Radiation Left Arm,Right Arm Pain Frequency Chronic,Continuous Pain Behaviors Anxious Pain Score Pain Score 6: Self Report Interventions Used Interventions Used By Clinicians Education,Exercise,Manual Therapy Techniques Cervical and Lumbar ROM Cervical ROM Cervical Extension (0-70) 25 Query Text:Active in Degrees Cervical Rotation Right (0-90) 50 Query Text:Active in Degrees Cervical Rotation Left (0-90) 60 Query Text:Active in Degrees Upper Extremity Range of Motion General Upper Extremity Range of Motion Reason Not Measured WFL/Left,WFL/Right Gross Upper Extremity Range of Motion reports right shoulder is very Comments stiff and tight Upper Extremity Muscle Strength Testing Scapular/Shoulder Left Shoulder Flexion Strength 4+ Good + Shoulder Abduction Strength 5 Normal Shoulder Medial Rotation Strength 5 Normal Shoulder Lateral Rotation Strength 5 Normal Right Shoulder Flexion Strength 4+ Good + Shoulder Abduction Strength 4+ Good + Shoulder Medial Rotation Strength 4+ Good + Shoulder Lateral Rotation Strength 4 Good Posture Posture Sitting Position Head/C-Spine Posture Forward Head Thoracic Spine Posture Neutral Palpation Assessment Palpation Palpation improved trigger points on the left side; continues to have significant trigger points to
== END 2021-02-04 09:57 | disposition home or self-care (01) ==
LOC: ANHPT 08:30
PROVIDERS: PCP Family Medicine
DX: M54.12 Radiculopathy, cervical region (principal)
CPT/HCPCS: 97110; 97140; 97162

== ENCOUNTER 2021-01-07 11:43 | Emergency (ER) | payer OTHER, SELFPAY ==
--- NOTE | ~2021-01-07 | CT_ITS ---
EXAMINATION: CT abdomen pelvis w con DATE: 01/07/2021 15:21 INDICATION: Abdominal pain. Hematuria. Urinary incontinence. TECHNIQUE: Computed tomography (CT) of the abdomen and pelvis was performed with 100 mL Omnipaque 350 intravenous contrast. Automated exposure control and iterative reconstruction technique were employe d. The dose-length product was 858.60 mGy-cm. COMPARISON: CT abdomen and pelvis 07/29/2020, 03/31/2017 FINDINGS: The visualized portions of the lung bases demonstrate minimal atelectasis. No pleural effus ion. The heart size is normal. No pericardial effusion. There are cysts in the liver measuring up to 6 mm. There are changes of cholecystectomy. The spleen, pancreas, adrenal glands, and right kidney ar e normal. There is cortical thinning of left kidney. There are no dilated loops of bowel. There are c hanges of appendectomy. There are no pathologically enlarged lymph nodes. There is no free intraperit ascencio fluid. There is mild thoracolumbar spondylosis. At T9-T10, there is a 10 mm calcified intradura l extramedullary mass on the left, stable from 03/31/2017, likely a disc extrusion. IMPRESSION: 1. No etiology for the patient's symptoms. Reviewed, dictated and finalized at location A.
[2021-01-07 12:00] VITALS: BP 149/84; PULSE 88; RESP 18; TEMP 36; O2SAT 97
[2021-01-07 12:34] LABS: Basophils Percent Auto 0.2 % (0.2-1.2); Eosinophils Percent Auto 0.8 % (0-4.4); Hemoglobin 15.5 g/dL (12.0-15.0); Immature Granulocyte Absolute 0.01 K/mm3 (0.00-0.031); Immature Granulocyte Percent A 0.2 % (0-0.5); Lymphocytes Absolute Auto 1.52 K/mm3 (0.9-3.2); Mean Corpuscular HGB Conc 33.7 g/dl (32-36); Mean Corpuscular Hemoglobin 30.3 pg (26-34); Mean Platelet Volume 9.8 fl (7.4-10.4); Monocytes Absolute Auto 0.4 K/mm3 (0.1-0.6); Monocytes Percent Auto 8.4 % (2.6-8.5); Neutrophils Absolute Auto 3.2 K/mm3 (1.3-6.7); Neutrophils Percent Auto 61.4 % (45.5-73.1); Platelet Count Result 213 k/mm3 (150-375); Red Blood Count 5.11 M/mm3 (4.2-5.4); Red Cell Distribution Width 12.8 % (11.5-14.5); White Blood Count 5.2 K/mm3 (4.5-10.0)
[2021-01-07 12:49] LABS: Add Urine Microscopic? YES; Appearance Urine Clear (Clear); Bilirubin Urine Negative (Negative); Blood Urine Negative (Negative); Color Urine Straw (Yellow); Glucose Urine UA Negative (Negative); Ketones Urine Negative (Negative); Leukocyte Esterase Ur Negative LEU/UL (Negative); Mucus Urine Rare /lpf; Nitrate Urine Negative (Negative); Protein Urine Negative (Negative); Specific Grav Ur 1.008 (1.001-1.035); Squamous Epithelial Cell Urine Rare /hpf (Few); Urobilinogen Urine Negative mg/dL (<2.0)
[2021-01-07 13:57] VITALS: BP 127/106; PULSE 78; RESP 17; O2SAT 97
[2021-01-07 14:07] LABS: Alanine Aminotransferase 29 U/L (4-35); Albumin Level 4.4 g/dL (3.5-5.1); Alkaline Phosphatase 103 U/L (38-126); Anion Gap 9 mmol/L (8-16); Aspartate Amino Transferase 31 U/L (14-36); Bilirubin,Total 0.5 mg/dL (0.2-1.3); Blood Urea Nitrogen 11 mg/dL (7-17); Calcium 9.1 mg/dL (8.4-10.2); Carbon Dioxide 21 mmol/L (22-30); Chloride 107 mmol/L (98-107); Estimated CRCL calculation 81 ml/min; Estimated Glomerular Filt Rate > 60; Glucose 111 mg/dL (65-110); Lipase 169 U/L (23-300); Potassium 3.9 mmol/L (3.4-5.0); Sodium 137 mmol/L (137-145)
--- NOTE | 2021-01-07 14:09 | ED.ABDPAIN ---
HPI - Abdominal Pain General Chief Complaint: Abdominal Pain Stated Complaint: abd pain/swelling, urinary incontinence Time Seen by Provider: 01/07/21 13:52 History of Present Illness HPI narrative: She reports multiple different issues which have all been going on for months. She has an area under her left breast that swells sometimes. She also reports that the left side of her abdomen is bloated and painful. She also reports constant pain in her lower abdomen for several months. She reports that it feels like there is a fist shoved inside her. She is not sure if its in her rectum or her vagina. She also reports frequent swelling to her right cheek. Related Data Home Medications Medication Instructions Recorded Confirmed sertraline [Zoloft] 20 mg PO DAILY 03/08/20 03/08/20 omeprazole 20 mg PO BID 07/29/20 Allergies Allergy/AdvReac Type Severity Reaction Status Date / Time levofloxacin AdvReac Unknown FEARFUL Verified 08/03/20 14:33 IT WILL MAKE FIBROMYLAGIA WORE Review of Systems Review of Systems: All systems reviewed & are unremarkable except as noted in HPI and below Constitutional: Constitutional: Denies fever(s) ENT: Reports nasal congestion Cardiovascular: Cardiovascular: Denies chest pain Respiratory: Respiratory: Reports no additional respiratory complaints Gastrointestinal: Gastrointestinal: Reports bloating, Denies constipation, Denies diarrhea, Reports nausea and Denies vomiting Genitourinary: Genitourinary: Reports urinary incontinence Neurologic: Reports system reviewed and no additional complaints, except as documented [facility] Past Medical History Medical History Fibromyalgia HTN (hypertension) Surgical History Surgical History Hx of cholecystectomy Family History Family History Other Carcinoma of colon Family history of Alzheimer's disease Family history of cardiovascular disease Hypertension Social History Social History Smoking status: Current every day smoker Alcohol intake: current Gender identity (if verbalized by the patient): Female Exam Const: General: no acute distress and alert Nutritional Appearance: obese Orientation/consciousness: patient oriented x3 HENMT: Head: normal to inspection Neck: Neck: normal visual inspection Resp: Effort & Inspection: normal respiratory effort Auscultation: clear to auscultation bilaterally, no rales, no rhonchi and no wheezes Cardio: Jugular venous distension: no JVD Rate: regular rate Rhythm: regular rhythm Heart sounds: no murmurs GI: Inspection: non-distended GI Palp: Yes Soft to palpation, Yes Tenderness to palpation present (GI), No Guarding due to palpation present (GI) and No Rebound tenderness present Other: refused rectal : Other: refused pelvic Skin: General skin exam: normal color Neuro: General: patient oriented x3, moves all extremities and CN's II-XI intact bilaterally Speech: normal speech Extrem: General: no edema Psych: Appearance: well kempt Affect: normal affect Course Vital Signs Vital signs: Vital Signs Temperature 36.0 C L 01/07/21 12:00 Pulse Rate 88 01/07/21 12:00 Respiratory Rate 18 01/07/21 12:00 Blood Pressure 149/84 H 01/07/21 12:00 Pulse Oximetry 97 01/07/21 12:00 Temperature 36.0 C L 01/07/21 12:00 Pulse Rate 93 01/07/21 17:00 Respiratory Rate 18 01/07/21 17:00 Blood Pressure 155/88 H 01/07/21 17:00 Pulse Oximetry 97 01/07/21 17:00 MDM - Abdominal Pain MDM Narrative Medical decision making narrative: Labs and imaging unremarkable. I was going to perform a pelvic exam, but she declined and said that she needed to leave. Differential Diagnosis Differential diagnosis: Likely constipatio
[2021-01-07 17:00] VITALS: BP 155/88; PULSE 93; RESP 18; O2SAT 97
--- NOTE | 2021-01-07 17:00 | PC.NURSE ---
Pt called out stating she would like to leave. Dr. Rader made aware. Dr. Rader to bedside to discuss test results with pt.
== END 2021-01-07 17:25 | disposition home or self-care (01) ==
PROVIDERS: Emergency Provider Emergency Medicine; PCP Family Medicine
DX: R10.84 Generalized abdominal pain (principal); M79.7 Fibromyalgia; I10 Essential (primary) hypertension; F17.200 Nicotine dependence, unspecified, uncomplicated
CPT/HCPCS: 36415; 74177; 80053; 81001; 81025; 83690; 85025; 99284; Q9967

== ENCOUNTER 2021-01-20 11:38 | Outpatient (CLI) | payer OTHER, SELFPAY ==
--- NOTE | ~2021-01-20 | XR_ITS ---
XR chest 2V DATE: 01/20/2021 11:54 INDICATION: Generalized chest pain. Shortness of breath. History of asthma. Covid diagnosis 1 month a go TECHNIQUE: PA and lateral views COMPARISON: 08/13/2020 PA and lateral chest FINDINGS: Normal heart size. No hilar or mediastinal enlargement. No pulmonary infiltrate or consolid ation, pleural effusion or pulmonary vascular congestion or pneumothorax. Degenerative spurring of th e thoracic spine. Status post cholecystectomy. IMPRESSION: No active cardiopulmonary disease Reviewed, dictated and finalized at location A.
== END 2021-01-20 11:39 | disposition home or self-care (01) ==
LOC: CHSLAB 11:39 → CHSIMG 11:42
PROVIDERS: PCP Family Medicine; Visit Provider Family Medicine
DX: R07.89 Other chest pain (principal)
CPT/HCPCS: 71046

== ENCOUNTER 2021-02-25 08:59 | Outpatient (CLI) | payer OTHER, SELFPAY | END 2021-02-25 09:00 | disposition home or self-care (01) | LOC: CHSCARD 09:00 | PROVIDERS: PCP Family Medicine; Visit Provider Family Medicine | DX: R06.09 Other forms of dyspnea (principal) | CPT/HCPCS: 94060; 94726; 94729 ==

== ENCOUNTER 2021-03-02 06:52 | Outpatient (CLI) | payer OTHER, SELFPAY ==
--- NOTE | 2021-03-12 11:43 | WPDHOMESLEEP ---
Sleep Study - Home Unattended Date of Study: 03/02/21 <Stephanie Bach DO - Last Filed: 03/12/21 12:33> Ordering Provider: Pablo Tierney MD <Stephanie Bach DO - Last Filed: 03/12/21 12:33> Interpreting Provider: Stephanie Bach DO <Stephanie Bach DO - Last Filed: 03/12/21 12:33> Home Sleep Study Type: Apnea Link Air <Stephanie Bach DO - Last Filed: 03/12/21 12:33> Height: 1.57 m <Stephanie Bach DO - Last Filed: 03/12/21 12:33> Weight: 86.183 kg <Stephanie Bach DO - Last Filed: 03/12/21 12:33> Body Mass Index: 34.7 <Stephanie Bach DO - Last Filed: 03/12/21 12:33> Neck Circumference (inches): 16 <Stephanie Bach DO - Last Filed: 03/12/21 12:33> Plover: 8 <Stephanie Bach DO - Last Filed: 03/12/21 12:33> Reason for Sleep Study The patient has loud snoring, difficulty concentrating, excessive daytime sleepiness, non restorative sleep and waking up frequently throughout the night. <Stephanie Bach DO - Last Filed: 03/12/21 12:33> Sleep History The patient is a 56-year-old female with hypertension, GERD, anxiety, depression that had a home sleep test ordered by her primary care physician for symptoms of sleep apnea. She constantly awakens from sleep short of breath. She constantly awakens at night with heartburn, belching or cough. She constantly snores loud enough that others complain. She often has difficulty sleeping when she has a cold. She frequently wakes up gasping for breath throughout the night. She frequently has breathing problems at night observed by others. He constantly sweats excessively at night. She constantly has heart palpitations throughout the night. She frequently falls asleep during the day but never while driving. She rarely experiences loss of muscle tone when extremely emotional. She often has trouble at school or work due to sleepiness. She denies sleep paralysis. She rarely has nightmares. She frequently has racing thoughts or her mind. She frequently is sad, depressed and has anxiety. She frequently notices parts of her body jerk. She often checks throughout the night. She rarely experiences crawling and aching feelings in her legs as well as leg pain throughout the night. She often greater teeth during sleep and has morning jaw pain. She is frequently bothered by pain during the day and awakened by pain throughout the night. She often wakes up feeling stiff in the morning with sore and achy muscles. The patient goes to bed around 10:00 p.m. to midnight on both weekdays and weekends. She does not have difficulty falling asleep. She will wake up more than 3 times per night for unknown reasons. He can sometimes take up to an hour to fall back asleep. If she can not fall asleep she will either watch television or kimberly. She typically gets 8 hours of sleep per night. She will awaken around 8:29 a.m. on both weekdays and weekends. The patient does not consume any caffeinated beverages 2 hours prior to bedtime. She does not engage in any physical exercise before bedtime. She will read watch television prior to falling asleep. She will take naps during the afternoon or evening that are refreshing. The patient is a former smoker. She denies alcohol and recreational drug use. She does have 1 glass of caffeinated tea per day. <Stephanie Bach DO - Last Filed: 03/12/21 12:33> [facility] Past Medical History Medical History: Medical History Fibromyalgia HTN (hypertension) <Stephanie Bach DO - Last Filed: 03/12/21 12:33> Surgical History Surgical History: Surgical History Hx of cholecystectomy <Stephanie Bach DO - Last Filed: 03/12/21 12:33> Family History Family History: Family History (Reviewed 03/12/21 @ 11:44 by Lita
[2021-03-12 11:46] VITALS: BMI 34.7
== END 2021-03-03 10:18 | disposition home or self-care (01) ==
LOC: ANHCSM 06:54
PROVIDERS: PCP Family Medicine; Visit Provider Family Medicine
DX: G47.33 Obstructive sleep apnea (adult) (pediatric) (principal); F41.8 Other specified anxiety disorders
CPT/HCPCS: 95806

== ENCOUNTER 2021-03-27 10:03 | Outpatient (CLI) | payer OTHER, SELFPAY ==
--- NOTE | ~2021-03-27 | CT_ITS ---
EXAMINATION: CT diagnostic chest wo con EXAM DATE: 03/27/2021 10:36 INDICATION: Dyspnea, chronic, unclear etiology post covid, SOB COVID 3mo ago -dyspnea w/ wheezing. TECHNIQUE: Spiral CT of the chest without contrast. Axial, coronal and sagittal images of the chest were reviewed. Coronal maximum intensity pixel images of chest reviewed. The dose-length product ( DLP) for this examination was 613.00 mGy-cm. The exposure was tailored according to patient size (au to mA exposure control), and iterative reconstruction (ASIR) was used as additional dose reduction te chnique. There is no prior study for comparison. FINDINGS: The lungs are clear. No evidence of interstitial lung disease. There are no pleural or per icardial effusions. Tracheobronchial tree is patent. There is no mediastinal, hilar or axillary l ymphadenopathy. There is no pneumothorax. Heart normal in size. No evidence of coronary arteria l calcification. There are cholecystectomy clips. There is thoracic spondylosis without osteoblasti c or osteolytic lesions identified. IMPRESSION: 1. Unremarkable CT chest examination. Reviewed, dictated and finalized at location B.
== END 2021-03-27 10:04 | disposition home or self-care (01) ==
LOC: CHSIMG 10:07
PROVIDERS: PCP Family Medicine
DX: R06.02 Shortness of breath (principal); Z86.16 Personal history of COVID-19; R07.9 Chest pain, unspecified; R94.2 Abnormal results of pulmonary function studies
CPT/HCPCS: 71250

== ENCOUNTER 2021-04-02 08:26 | Outpatient (CLI) | payer OTHER, SELFPAY ==
--- NOTE | 2021-04-02 09:30 | ECHO_ITS ---
Patient Info Name: Daria Contreras Age: 56 years : 1965 Gender: Female Ht: 63 in Wt: 190 lbs BSA: 1.99 m2 HR: 72 bpm BP: 160 / 76 mmHg Exam Date: 04/02/2021 8:44 AM Exam Location: [facility] Patient Status: Outpatient Admit Date: 04/02/2021 Staff Ordering Physician: Gibran Alva Belt Worker: Shane Kc RDCS, RT Attending Provider: gibran alva NP Exam Type: CA echo doppler color flow Study Info Indications I49.9 - Cardiac arrhythmia, unspecified Complete two-dimensional, color flow and Doppler transthoracic echocardiogram is performed. Strain analysis performed. Summary 1. Complete two-dimensional, color flow and Doppler transthoracic echocardiogram is performed. 2. Left ventricular chamber dimension is normal. 3. Left ventricular systolic function is normal, estimated at 60-65%. 4. The left ventricular diastolic function is grade I diastolic dysfunction. 5. E/e' 7 is not elevated. 6. Global longitudinal strain is normal at -19.7%. Left Ventricle E/e' 7 is not elevated. Global longitudinal strain is normal at -19.7%. Left ventricular chamber dimension is normal. Left ventricular systolic function is normal, estimated at 60-65%. The left ventricular diastolic function is grade I diastolic dysfunction. Right Ventricle Right ventricular systolic function is normal and with normal TAPSE 1.9 cm. Right ventricular chamber dimension is normal. Left Atria Left atrial chamber dimension is normal. Right Atria Right atrial chamber dimension is normal. Aortic Valve The aortic valve is trileaflet. There is no aortic valve stenosis. There is no aortic valve regurgitation. Pulmonic Valve There is no pulmonic regurgitation. Mitral Valve There is no mitral valve stenosis. There is no mitral valve regurgitation. Tricuspid Valve There is no tricuspid valve regurgitation. Pericardium/Pleural There is no pericardial effusion. Inferior Vena Cava Normal inferior vena cava with >50% collapse upon inspiration consistent with normal right atrial pressure, 5 mmHg. Aorta The aortic root size at the sinus of Valsalva is normal. Left Ventricular Outflow Tract Name Value Normal LVOT 2D LVOT Diameter 2.0 cm LVOT Doppler LVOT Peak Velocity 112 cm/s LVOT Peak Gradient 5 mmHg LVOT Mean Gradient 2 mmHg LVOT VTI 23 cm LVOT VTI/AV VTI Ratio 0.7 LVOT Stroke Volume 70 ml Mitral Valve Name Value Normal MV Doppler MV Decel Foard 236 cm/s2 MV PHT 81 ms MV Area (PHT) 2.7 cm2 4.0-5.0 MV Diastolic Function
== END 2021-04-02 08:27 | disposition home or self-care (01) ==
LOC: CHSIMG 08:27
PROVIDERS: PCP Family Medicine
DX: R06.02 Shortness of breath (principal); R00.2 Palpitations; Z86.16 Personal history of COVID-19
CPT/HCPCS: 93306

== ENCOUNTER 2021-04-14 08:27 | Outpatient (CLI) | payer OTHER, SELFPAY ==
--- NOTE | 2021-05-15 11:45 | WPDHOLTEREM ---
Holter/Event Monitor Holter/Event Monitor Date of procedure: 04/14/21 Holter/Event Procedure: Event Monitor Indications: Palpitations Conclusion: 1. 26 days event monitor between 04/14/21-05/13/21. There are 8 available transmissions for analysis. 2. Underlying rhythm is sinus rhythm. HR range 50-120 bpm; average HR 75 bpm. 3. There are occasional premature supraventricular complexes with total burden of <1%. No supraventricular tachycardia. 4. There are occasional premature ventricular complexes with total burden of <1%. No ventricular tachycardia. 5. No significant pauses greater than 2 seconds. 6. Patient reports 5 episodes of symptoms of chest pain, lightheadedness, symptom other than listed which demonstrate sinus rhythm, HR range 73-98 bpm.
== END 2021-04-14 08:28 | disposition home or self-care (01) ==
LOC: CHSCARD 08:32
PROVIDERS: PCP Family Medicine
DX: R00.2 Palpitations (principal); U09.9 Post COVID-19 condition, unspecified; G93.3 Postviral and related fatigue syndromes; R06.02 Shortness of breath
CPT/HCPCS: 93270

== ENCOUNTER 2021-09-29 11:00 | Outpatient (RCR) | payer OTHER, SELFPAY ==
--- NOTE | 2021-09-01 13:39 | PTOPEVAL ---
PHYSICAL THERAPY EVALUATION AND PLAN OF CARE 09-01-21 Thank you for referring Daria Contreras to [facility] for the diagnosis of cervical radiculopathy. Daria is scheduled to be seen for therapy? 2 x/week for 4 weeks. Please review, sign, date and return this plan of care PRADEEP. I agree with and certify that the following plan of care is medically necessary. Referring Physician Date Attending Provider: GRADY Cooley Past Medical History Source of Past Medical History Recalled from Previous Visit, Confirmed with Patient/Family Neurological History Hx Other Neurological Disorders Yes: swelling and increased fluid in R side of face Cardiovascular History Hx Hypertension Yes: meds control Respiratory History Hx COVID-19 Yes: Dec 2020; have vaccines Gastrointestinal History Hx Appendectomy Yes Hx Cholecystectomy Yes Genitourinary History Hx Genitourinary Disorders No Significant History Musculoskeletal History Hx Arthritis Yes: neck Hx Back Pain Yes: recent xray showed fracture in back-not done anything about Hx Spinal Surgery Yes: cervical 5-7 surgery 12 yr ago Endocrine History Hx Endocrine Disorders No Significant History Reproductive History Hx Post Menopausal Yes Other History Hx Other Medical Conditions Yes: reports gained alot of wt lately--trying to lose wt Diagnosis cervical radiculopathy Onset May 2021 Subjective Information gradual increase in neck pain Query Text:As Reported By Patient/ and radicular pain in R arm Family and leg; told her if PT is too much and pain worse, then to get an MRI and maybe need more surgery--but she does not want any more surgery; Diagnostic Tests X-Rays For This Problem No MRI For This Problem No Other Tests For This Problem No Previous Treatments Previous Treatments For This Problem PT here ~ 6 mo ago,standing exer increase pain and had to do sitting; Prior Level of Function Activity Level (Last 3 Months) Occupation not working due to pain Hand Dominance Left Activity of Daily Living Ability Independent Indoor/Home Mobility Independent Functional Cognition (Planning, Shopping Independent , Taking Medications) Cooking Yes Laundry Yes Shopping No Driving Yes Home Setting
--- NOTE | 2021-09-29 11:49 | PTOPEVAL ---
PHYSICAL THERAPY DISCHARGE REPORT 09-29-21 Refer to the clinical summary below, for her status today, compared to the initial evaluation. The goals were partially met. Discharge PT services; she continues to have increased cervical pain, radicular into R and L UE, with headaches and nerve pain shooting down her spine. Thank you for referring Daria Contreras to [facility].? Please review, sign, date and return this Discharge report PRADEEP. I agree with and certify that the following plan of care is medically necessary. Referring Physician Date Attending Provider: GRADY Brower Subjective Information Daria reports: pain and Query Text:As Reported By Patient/ headaches are worse; can only Family lie flat on back, cannot lie on either R or L sides; R side of face is numb; have worked at the therapy, but not helped and pain is more now; after therapy sessions, that exercise was good, but gave me pain for the rest of the day; having more shooting pain into R eye and side of face and R cheek swollen; no swelling on the L side; Pain Assessment Pain Scale Used Numeric (1 - 10) Self Report Pain Assessment Bilateral Neck Reported Pain Level 6 Pain Description Aching,Burning,Heavy,Numbness, Tingling Radicular Pain Location into R UE to all fingers all time; into L UE to shoulder tingle 50% time Pain Frequency Chronic,Continuous Lowest Pain Intensity 5 Greatest Pain Intensity 10 Pain Score Pain Score 6: Self Report Additional Pain Score Comments Oswestry self assessment functional score of 70% limitation in activity level; headaches occur every other day, duration of few minutes to few hours--lie down able to tolerate sit/stand/ being upright 5 hours at time, depends upon activity level-- sitting watching TV or doing some shopping; after over do it too much with grocery shopping, will be in the bed the whole next day numbness R leg to foot all time reports shooting nerve pain
== END 2021-09-30 11:04 | disposition home or self-care (01) ==
LOC: ANHPT 11:00
PROVIDERS: PCP Family Medicine
DX: M54.12 Radiculopathy, cervical region (principal)
CPT/HCPCS: 20560; 97014; 97110; 97140; 97162; 97530; G0283

== ENCOUNTER 2021-10-05 14:34 | Outpatient (CLI) | payer OTHER, SELFPAY ==
[2021-10-05 14:53] LABS: Basophils Absolute Auto 0.04 K/mm3 (0.00-0.10); Basophils Percent Auto 0.6 % (0.0-1.0); Eosinophils Absolute Auto 0.17 K/mm3 (0.02-0.50); Eosinophils Percent Auto 2.4 % (1.0-6.0); Hematocrit 45.2 % (35.0-49.0); Hemoglobin 15.7 g/dL (12.0-15.0); Immature Granulocyte Absolute 0.01 K/mm3 (0.00-0.00); Immature Granulocyte Percent A 0.1 % (0.0-0.0); Lymphocytes Absolute Auto 2.09 K/mm3 (1.10-4.50); Lymphocytes Percent Auto 29.6 % (18.0-42.0); Mean Corpuscular HGB Conc 34.7 g/dL (32.0-36.0); Mean Corpuscular Hemoglobin 31.3 pg (27.0-31.0); Mean Corpuscular Volume 90.2 fL (78.0-102.0); Mean Platelet Volume 9.4 fl (9.2-11.8); Monocytes Absolute Auto 0.65 K/mm3 (0.10-0.90); Monocytes Percent Auto 9.2 % (2.0-11.0); Neutrophils Absolute Auto 4.1 K/mm3 (1.7-7.2); Neutrophils Percent Auto 58.1 % (50.0-70.0); Platelet Count Result 243 K/mm3 (150-420); Red Blood Count 5.01 M/mm3 (4.20-5.40); Red Cell Distribution Width 12.5 % (11.6-14.4); White Blood Count 7.1 K/mm3 (4.8-10.8)
[2021-10-05 14:54] LABS: Add Urine Microscopic? YES; Appearance Urine Clear (Clear); Bilirubin Urine Negative (Negative); Blood Urine 2+ (Negative); Color Urine Light Yellow (Yellow); Glucose Urine UA Negative (Negative); Ketones Urine Negative (Negative); Leukocyte Esterase Ur Negative (Negative); Nitrate Urine Negative (Negative); Protein Urine Negative (Negative); Specific Grav Ur 1.015 (1.010-1.020); Urobilinogen Urine 0.2 mg/dL (0.2-1.0)
[2021-10-05 15:18] LABS: Alanine Aminotransferase 29 U/L (14-59); Albumin Level 4.1 g/dL (3.4-5.0); Alkaline Phosphatase 98 U/L (46-116); Amylase 38 U/L (25-115); Anion Gap 12 mmol/L (8-16); Aspartate Amino Transferase 19 U/L (15-37); Bilirubin,Total 0.4 mg/dL (0.00-1.00); Blood Urea Nitrogen 11 mg/dL (7-18); Calcium 8.9 mg/dL (8.5-10.1); Carbon Dioxide 24 mmol/L (21-32); Chloride 105 mmol/L (98-108); Estimated Glomerular Filt Rate > 60; Glucose 105 mg/dL (70-99); Lipase 91 U/L (73-393); Osmolality Calculated 291 mOsm/kg (285-295); Potassium 3.4 mmol/L (3.5-5.1); Sodium 141 mmol/L (136-145); Total Protein 7.6 g/dL (6.4-8.2)
[2021-10-05 15:26] LABS: Bacteria Urine Trace /hpf; Squamous Epithelial Cell Urine Few /hpf (Few); WBC Urine None seen /hpf (0-3)
== END 2021-10-05 14:35 | disposition home or self-care (01) ==
LOC: CHSLAB 14:36
PROVIDERS: PCP Family Medicine; Visit Provider Family Medicine
DX: R10.9 Unspecified abdominal pain (principal); R82.998 Other abnormal findings in urine
CPT/HCPCS: 36415; 80053; 81001; 82150; 83690; 85025

== ENCOUNTER 2021-10-11 09:52 | Emergency (ER) | payer OTHER, SELFPAY ==
[2021-10-11 09:55] VITALS: BP 114/99; PULSE 91; RESP 18; TEMP 36.3; O2SAT 99
--- NOTE | 2021-10-11 10:44 | ED.GENADULT ---
HPI - General Adult General Chief complaint: Unspecified Stated complaint: multiple complaints Time Seen by Provider: 10/11/21 10:24 History of Present Illness HPI narrative: Patient is a 56-year-old female with a history of fibromyalgia here for multiple medical complaints. Patient states she is most concerned over intermittent tooth aches over the past year. She was seen by her dentist last week and placed on amoxicillin. She is currently on day 6 of this regimen and is set to get her tooth pulled tomorrow, but she is concerned that her dental infection is spreading and that she has developed sepsis . She notes some intermittent abdominal bloating, most notable in her left side in addition to some diarrhea over the past week and some yellow stools. Additionally reports some nausea, but no vomiting, christy abdominal pain, fevers, chills, blood in her stools, chest pain, leg swelling, shortness of breath, rashes. Patient usually follows at [place] for her care. Related Data Home Medications Medication Instructions Recorded Confirmed sertraline [Zoloft] 20 mg PO DAILY 03/08/20 03/08/20 omeprazole 20 mg PO BID 07/29/20 Allergies Allergy/AdvReac Type Severity Reaction Status Date / Time levofloxacin AdvReac Unknown FEARFUL Verified 10/11/21 10:20 IT WILL MAKE FIBROMYLAGIA WORE Review of Systems Review of Systems: Gen.: Denies fevers or chills Eyes: Denies eye pain or visual change ENT: Reports dental pain. Denies congestion Respiratory: Denies shortness of breath or cough CV: Denies chest pain or palpitations GI: Reports abdominal bloating nausea and diarrhea. Denies abdominal pain or emesis denies burning, urgency, frequency or hematuria Musculoskeletal: Denies back pain or muscle pain Neuro: Denies numbness, tingling, weakness or focal weakness Skin: Denies rash Except as documented, all other systems reviewed and negative All systems reviewed & are unremarkable except as noted in HPI and below PMFSH Past Medical History Medical History Fibromyalgia HTN (hypertension) Surgical History Surgical History Hx of cholecystectomy Family History Family History Other Carcinoma of colon Family history of Alzheimer's disease Family history of cardiovascular disease Hypertension Social History Social History Smoking status: Current every day smoker Alcohol intake: current Gender identity (if verbalized by the patient): Female Exam Narrative: APPEARANCE: Well appearing, no pain in distress, well-nourished. Head: normocephalic and atraumatic. EYES: PERRLA/EOMI, conjunctivae clear NOSE: No nasal drainage EARS: External ear normal in appearance THROAT: Patient's right lower molar is cracked. No palpable dental abscess. Mucous membranes are moist. NECK: Supple. No adenopathy, no masses. RESPIRATORY: Airway patent, respirations nonlabored. Clear to auscultation bilaterally, no rales, rhonchi, wheezing. CARDIOVASCULAR: Regular rate and rhythm without murmurs, rubs, or gallops. ABDOMINAL: No swelling appreciated by my exam. Normoactive bowel sounds. Soft, nontender, nondistended. No rebound tenderness or guarding. MUSCULOSKELETAL: Extremities are warm and well-perfused. Moves all extremities well. No edema. NEURO: Normal speech. No focal neurologic deficits. SKIN: Skin is warm and dry. No rashes. PSYCHIATRIC: Normal affect/mood. Course Vital Signs Vital signs: Vital Signs Temperature 97.3 F L 10/11/21 09:55 Pulse Rate 91 10/11/21 09:55 Respiratory Rate 18 10/11/21 09:55 Blood Pressure 114/99 H 10/11/21 09:55 Pulse Oximetry 99 10/11/21 09:55 Temperature 97.3 F L 10/11/21 09:55 Pulse Rate 91 10/11/21 09:55 Respirator
[2021-10-11 10:50] LABS: Basophils Absolute Auto 0.1 K/mm3 (0.0-0.1); Basophils Percent Auto 0.8 % (0.2-1.2); Eosinophils Absolute Auto 0.1 K/mm3 (0-0.3); Eosinophils Percent Auto 2.1 % (0-4.4); Hematocrit 44.7 % (37.0-47.0); Hemoglobin 15.2 g/dL (12.0-15.0); Immature Granulocyte Absolute 0.02 K/mm3 (0.00-0.031); Immature Granulocyte Percent A 0.3 % (0-0.5); Lymphocytes Absolute Auto 1.39 K/mm3 (0.9-3.2); Lymphocytes Percent Auto 22.1 % (18.3-44.2); Mean Platelet Volume 9.1 fl (7.4-10.4); Monocytes Absolute Auto 0.4 K/mm3 (0.1-0.6); Neutrophils Absolute Auto 4.3 K/mm3 (1.3-6.7); Neutrophils Percent Auto 67.7 % (45.5-73.1); Platelet Count Result 247 k/mm3 (150-375); Red Blood Count 4.91 M/mm3 (4.2-5.4); Red Cell Distribution Width 12.7 % (11.5-14.5); White Blood Count 6.3 K/mm3 (4.5-10.0)
[2021-10-11 11:03] LABS: Alanine Aminotransferase 20 U/L (6-35); Albumin Level 4.4 g/dL (3.5-5.1); Alkaline Phosphatase 74 U/L (38-126); Anion Gap 9 mmol/L (8-16); Aspartate Amino Transferase 26 U/L (14-36); Bilirubin,Total 0.4 mg/dL (0.2-1.3); Blood Urea Nitrogen 10 mg/dL (7-17); Calcium 8.5 mg/dL (8.4-10.2); Carbon Dioxide 24 mmol/L (22-30); Chloride 107 mmol/L (98-107); Estimated CRCL calculation 78 ml/min; Estimated Glomerular Filt Rate > 60; Glucose 111 mg/dL (65-110); Lipase 296 U/L (23-300); Potassium 3.8 mmol/L (3.4-5.0); Sodium 140 mmol/L (137-145)
== END 2021-10-11 11:26 | disposition home or self-care (01) ==
PROVIDERS: Physician Assistant; Emergency Provider Emergency Medicine; PCP Family Medicine
DX: K08.89 Other specified disorders of teeth and supporting structures (principal); M79.7 Fibromyalgia; I10 Essential (primary) hypertension; F17.200 Nicotine dependence, unspecified, uncomplicated
CPT/HCPCS: 36415; 80053; 83690; 85025; 99283

== ENCOUNTER 2021-10-29 13:53 | Emergency (ER) | payer OTHER, SELFPAY ==
--- NOTE | ~2021-10-29 | CT_ITS ---
EXAMINATION: CT abdomen pelvis wo con DATE: 10/29/2021 15:26 INDICATION: Left lower quadrant abdominal pain TECHNIQUE: Computed tomography (CT) of the abdomen and pelvis was performed without intravenous contr ast. The dose-length product (DLP) was 596.34 mGy-cm. Automated exposure control and iterative recons truction technique were employed. COMPARISON: 01/07/2021 FINDINGS: The lung bases are clear. The heart size is normal. The gallbladder is surgically absent. T he liver, spleen, pancreas, and adrenal glands are normal. The kidneys are unremarkable. There appear to be changes of prior appendectomy. No pathologically enlarged abdominal or pelvic lymph nodes are identified. There is no free intraperitoneal gas or evidence of bowel obstruction. There is mild lumb ar spondylosis. IMPRESSION: 1. No CT correlate for the patient's symptoms. Reviewed, dictated and finalized at location F.
[2021-10-29 14:20] VITALS: BP 148/88; PULSE 90; RESP 16; O2SAT 99
[2021-10-29 15:13] LABS: Basophils Absolute Auto 0.1 K/mm3 (0.0-0.1); Basophils Percent Auto 0.9 % (0.2-1.2); Eosinophils Absolute Auto 0.1 K/mm3 (0-0.3); Hematocrit 48.6 % (37.0-47.0); Hemoglobin 16.3 g/dL (12.0-15.0); Immature Granulocyte Absolute 0.02 K/mm3 (0.00-0.031); Immature Granulocyte Percent A 0.2 % (0-0.5); Lymphocytes Absolute Auto 2.12 K/mm3 (0.9-3.2); Lymphocytes Percent Auto 24.1 % (18.3-44.2); Mean Corpuscular HGB Conc 33.5 g/dl (32-36); Mean Corpuscular Hemoglobin 30.9 pg (26-34); Mean Corpuscular Volume 92.2 fl (80-100); Mean Platelet Volume 9.8 fl (7.4-10.4); Monocytes Absolute Auto 0.7 K/mm3 (0.1-0.6); Monocytes Percent Auto 8.2 % (2.6-8.5); Neutrophils Absolute Auto 5.8 K/mm3 (1.3-6.7); Neutrophils Percent Auto 65.6 % (45.5-73.1); Platelet Count Result 276 k/mm3 (150-375); Red Blood Count 5.27 M/mm3 (4.2-5.4); Red Cell Distribution Width 12.7 % (11.5-14.5); White Blood Count 8.8 K/mm3 (4.5-10.0)
[2021-10-29 15:19] LABS: Alanine Aminotransferase 22 U/L (6-35); Alkaline Phosphatase 96 U/L (38-126); Anion Gap 11 mmol/L (8-16); Aspartate Amino Transferase 31 U/L (14-36); Bilirubin,Total 0.9 mg/dL (0.2-1.3); Blood Urea Nitrogen 14 mg/dL (7-17); Calcium 9.2 mg/dL (8.4-10.2); Carbon Dioxide 20 mmol/L (22-30); Chloride 107 mmol/L (98-107); Estimated CRCL calculation 63 ml/min; Estimated Glomerular Filt Rate > 60; Glucose 108 mg/dL (65-110); Lipase 99 U/L (23-300); Potassium 3.7 mmol/L (3.4-5.0); Sodium 138 mmol/L (137-145)
--- NOTE | 2021-10-29 15:24 | ED.ABDPAIN ---
HPI - Abdominal Pain General Chief Complaint: Abdominal Pain Stated Complaint: stomach cramps Time Seen by Provider: 10/29/21 14:40 History of Present Illness HPI narrative: 56-year-old female presents to the emergency room for evaluation of left flank pain, left abdominal wall pain for at least 6 months. Patient states that she has also had no increased amounts of diarrhea, bloating and nausea on a regular basis the last 2 months. Patient states that she is under the care of a GI doctor at [facility]. Patient was seen here in the emergency room 2 weeks ago for what she thought was sepsis related to a dental pain, states she was evaluated at the dentist yesterday and there is no signs of a broken tooth or infection. At that time she was complaining of abdominal pain, was reported to her that her abdominal exam was nonfocal and she should follow-up. Patient states that she has not followed up with her GI doctor. Reviewing old emergency room records, patient has been seen here multiple times for left flank, left abdominal wall pain. Patient reports that she has something up my butt or vagina . Related Data Home Medications Medication Instructions Recorded Confirmed sertraline 20 mg/mL oral 20 mg PO DAILY 03/08/20 03/08/20 concentrate (Zoloft) omeprazole 20 mg capsule,delayed 20 mg PO BID 07/29/20 release Allergies Allergy/AdvReac Type Severity Reaction Status Date / Time levofloxacin AdvReac Unknown FEARFUL Verified 10/11/21 10:20 IT WILL MAKE FIBROMYLAGIA WORE Review of Systems Review of Systems: CONSTITUTIONAL: Denies fever, chills, or sweats. EYES: Denies visual changes, redness, or discharge. ENT: Denies rhinorrhea, congestion, sore throat, or otalgia. CARDIOVASCULAR: Denies chest pain, palpitations, or edema. RESPIRATORY: Denies cough or dyspnea. GASTROINTESTINAL: Reports abdominal pain, nausea, and diarrhea. GENITOURINARY: Denies dysuria or hematuria. SKIN: Denies rash or itching. MUSCULOSKELETAL: Denies back pain, joint pain, or myalgia. NEUROLOGIC: Denies headache, numbness, dizziness, or weakness. PSYCHIATRIC: Denies anxiety or depression. [facility] Past Medical History Medical History Fibromyalgia HTN (hypertension) Surgical History Surgical History Hx of cholecystectomy Family History Family History Other Carcinoma of colon Family history of Alzheimer's disease Family history of cardiovascular disease Hypertension Social History Social History Smoking status: Current every day smoker Alcohol intake: current Gender identity (if verbalized by the patient): Female Exam Narrative: GENERAL: Well-appearing, well-nourished, and in no acute distress. HEAD: Normocephalic, atraumatic. EYES: PERRLA and EOMI. ENT: Nares clear, no rhinorrhea or epistaxis. Mucous membranes moist. Oropharynx without tonsillar hypertrophy exudate or other lesions. Bilateral TMs pearly lamb nonbulging CHEST: Clear to auscultation. No respiratory distress. No wheezes rales or rhonchi HEART: Regular rate and rhythm. No murmur heard. Normal peripheral pulses. ABDOMEN: Soft, left upper and left lower quadrant tenderness, no CVA tenderness nondistended, normal active bowel sounds. No swelling appreciated on physical exam. No guarding EXTREMITIES: Normal range of motion. No edema. SKIN: Warm, dry, no rash. NEURO: No focal deficits. Alert and oriented x3. PSYCH: Normal mood and affect. Course Vital Signs Vital signs: Vital Signs Pulse Rate 90 10/29/21 14:20 Respiratory Rate 16 10/29/21 14:20 Blood Pressure 148/88 H 10/29/21 14:20 Pulse Oximetry 99 10/29/21 14:20 Pulse Rate 90 10/29/21 14:20 Respiratory Rate 16 10/29/21 14:20 Blood Pressure 148/8
[2021-10-29 16:00] VITALS: BP 136/78; PULSE 78; RESP 14; TEMP 36.8; O2SAT 98
[2021-10-29 16:02] LABS: Appearance Urine Slightly Cloudy (Clear); Bilirubin Urine 1+ (Negative); Blood Urine 2+ (Negative); Color Urine Yellow (Yellow); Glucose Urine UA Negative (Negative); Ketones Urine Trace mg/dL (Negative); Leukocyte Esterase Ur Negative LEU/UL (Negative); Nitrate Urine Negative (Negative); Protein Urine 1+ mg/dL (Negative); Specific Grav Ur 1.025 (1.001-1.035); Urobilinogen Urine 0.2 mg/dL (<2.0)
[2021-10-29 16:08] LABS: Bacteria Urine Trace /hpf; Mucus Urine Moderate /lpf; Squamous Epithelial Cell Urine Many /hpf (Few); WBC Urine 0-3 /hpf
[2021-10-29 16:10] LABS: Add Urine Microscopic? YES
[2021-10-29 16:27] LABS: Amphetamine Screen Urine Negative (Negative); Barbiturate Screen Urine Negative (Negative); Benzodiazepines Screen Urine Negative (Negative); Cannabinoid Screen Urine Positive (Negative); Cocaine Screen Urine Negative (Negative); Methadone Screen Urine Negative (Negative); Opiate Screen Urine Negative (Negative); Phencyclidine Screen Urine Negative (Negative)
[2021-10-29 17:10] VITALS: BP 134/78; PULSE 80; RESP 16; TEMP 36.8; O2SAT 100
== END 2021-10-29 17:31 | disposition home or self-care (01) ==
PROVIDERS: Emergency Medicine; Emergency Provider Nurse Practitioner Family; PCP Family Medicine
DX: R10.9 Unspecified abdominal pain (principal); I10 Essential (primary) hypertension; M79.7 Fibromyalgia; F17.200 Nicotine dependence, unspecified, uncomplicated
CPT/HCPCS: 36415; 74176; 80053; 80307; 81001; 83690; 85025; 99284

== ENCOUNTER 2022-04-30 10:57 | Outpatient (CLI) | payer OTHER, SELFPAY ==
--- NOTE | ~2022-04-30 | XR_ITS ---
EXAMINATION: XR chest 2V DATE: 04/30/2022 11:49 INDICATION: Shortness of breath TECHNIQUE: PA and lateral views of the chest are obtained. COMPARISON: 01/20/2021, 08/13/2020 FINDINGS: The lungs are free of acute opacities. No pleural effusion or pneumothorax. The cardiomedia stinal silhouette is normal. There is moderate thoracic spondylosis. Surgical clips in the upper abdo men on the lateral view are likely from prior cholecystectomy. IMPRESSION: 1. No acute cardiopulmonary abnormality. Reviewed, dictated and finalized at location A. ROPATHIC DOCTOR
[2022-04-30 12:04] LABS: Influenza A QL RT-PCR Negative (Negative); Influenza B QL RT-PCR Negative (Negative); SARS-CoV-2 RNA PCR Negative (Negative)
[2022-04-30 12:07] LABS: RSV RNA, RT-PCR Negative (Negative)
== END 2022-04-30 10:58 | disposition home or self-care (01) ==
PROVIDERS: PCP Family Medicine; Visit Provider Family Medicine
DX: J06.9 Acute upper respiratory infection, unspecified (principal); R06.02 Shortness of breath; Z20.822 Contact with and (suspected) exposure to COVID-19
CPT/HCPCS: 71046; 87637

== ENCOUNTER 2022-05-07 14:01 | Outpatient (CLI) | payer OTHER, SELFPAY ==
--- NOTE | ~2022-05-07 | MM_ITS ---
EXAMINATION: MM screening [facility] BI w marino HISTORY: Screening mammogram TECHNIQUE: Craniocaudal and mediolateral oblique 3-D tomosynthesis images were obtained and synthetic 2-D images were generated. CAD analysis was submitted and interpreted. COMPARISON: 04/22/2020, 07/10/2018, 09/16/2016 BREAST PARENCHYMAL COMPOSITION: The breasts are almost entirely fatty. FINDINGS: No suspicious mass, calcification, or architectural distortion are identified in either na ast to suggest malignancy. There has been no suspicious interval change. IMPRESSION: 1. No mammographic evidence of malignancy. 2. Recommend routine screening mammography in one year. BI-RADS Category 1: Negative Reviewed, dictated and finalized at location A. TONE OPERATOR
== END 2022-05-07 14:02 | disposition home or self-care (01) ==
PROVIDERS: PCP Family Medicine; Visit Provider Family Medicine
DX: Z12.31 Encounter for screening mammogram for malignant neoplasm of breast (principal)
CPT/HCPCS: 77063; 77067

== ENCOUNTER 2022-07-22 08:41 | Outpatient (CLI) | payer OTHER, SELFPAY ==
--- NOTE | ~2022-07-22 | MR_ITS ---
MRI of the brain Clinical History: Right facial numbness Technique: Axial and sagittal T1-weighted images were acquired. These were followed by axial T2-weigh eduarda, diffusion weighted, gradient, and FLAIR images. COMPARISON: 03/18/2020 Findings: There is no acute infarct, intracranial hemorrhage, or mass lesion. There are mild chronic white matter lesions in the periventricular white matter bilaterally, similar to prior exam. Ventricles and subarachnoid spaces are unremarkable. Orbits are unremarkable. Paranasal sinuses and m astoid air cells are essentially clear. Major intracranial flow voids are intact. Sagittal midline structures are intact. IMPRESSION: No acute abnormality. Stable mild chronic white matter disease. This is likely chronic microvascular ischemic change. Corre late for any possibility of demyelinating disease. Reviewed, dictated and finalized at location M. OR CORE JAVA DEVELOPER IMPRESSION: No acute abnormality. Stable mild chronic white matter disease. This is likely chronic microvascular ischemic change. Correlate for any possibility of demyelinating disease.
--- NOTE | ~2022-07-22 | MR_ITS ---
MRI of the cervical spine Clinical History: Cervical radiculopathy Technique: Axial T2-weighted and gradient images, and sagittal T1-weighted, T2-weighted, and STIR jaguar ges were acquired. Findings: There is straightening of normal cervical lordosis. No fracture or subluxation seen. There is fusion across the C5-C6 and C6-C7 disc spaces, with interbody fusion device is present. No suspici ous bone marrow signal abnormality identified. At C2-C3, there is no disc bulge or herniation. No spinal canal stenosis, cord compression, or neural foraminal narrowing. At C3-C4, there is no disc bulge or herniation. No spinal canal stenosis, cord compression, or neural foraminal narrowing. At C4-C5, there is disc osteophyte complex which results in mild canal stenosis and possible minimal flattening of the ventral cord. Neural foramina are probably preserved. At C5-C6, there is mild osseous canal stenosis without christy cord compression. Neural foramina are pr eserved. At C6-C7, there is no christy spinal canal stenosis or cord compression. Neural foramina appear preserv ed. At C7-T1, there is mild disc osteophyte complex. There is no christy cord compression or neural foramin al narrowing. No abnormal signal seen in the spinal cord. Paravertebral soft tissues are unremarkable. Impression: Fusion across the C5-C6 and C6-C7 disc spaces. Mild degenerative spondylosis, as detailed above, worst at C4-C5. Reviewed, dictated and finalized at [facility]. R CUTTER Impression: Fusion across the C5-C6 and C6-C7 disc spaces. Mild degenerative spondylosis, as detailed above, worst at C4-C5.
--- NOTE | ~2022-07-22 | MR_ITS ---
MRI of the thoracic spine Clinical History: Pain Technique: Axial T2-weighted and gradient images, and sagittal T1-weighted, T2-weighted, and STIR jaguar ges were acquired. Findings: No fracture or subluxation seen in the thoracic spine. Vertebral bodies maintain normal hei ght and alignment. There are mild reactive marrow signal changes due to underlying degenerative disc change. No suspicious bone marrow signal abnormality seen. There is a left paracentral disc osteophyte complex at T9-T10, which may mildly impinge the left neur al foramen at this level. No other significant disc bulge or herniation seen. No spinal canal stenosi s or cord compression evident. Paravertebral soft tissues are unremarkable. Impression: Left paracentral disc osteophyte complex at T9-T10 which may mildly impinge the left neural foramen a t this level. Reviewed, dictated and finalized at [facility]. ISION LAYOUT WORKER Impression: Left paracentral disc osteophyte complex at T9-T10 which may mildly impinge the left neural foramen at this level.
== END 2022-07-22 08:42 | disposition home or self-care (01) ==
PROVIDERS: PCP Family Medicine; Visit Provider Student in an Organized Health Care Education/Training Program
DX: R20.0 Anesthesia of skin (principal); Z98.1 Arthrodesis status; M50.321 Other cervical disc degeneration at C4-C5 level; R93.0 Abnormal findings on diagnostic imaging of skull and head, not elsewhere classified
CPT/HCPCS: 70551; 72141; 72146

== ENCOUNTER 2022-09-15 08:37 | Outpatient (CLI) | payer OTHER, SELFPAY ==
--- NOTE | 2022-09-15 11:00 | NEURO_ITS ---
Impression: # Complains of numbness of all extremities. History of cervical surgery long time ago. # Carpal Tunnel Syndrome with more involvement of sensory component. # Right ulnar neuropathy across the elbow. # Needle/EMG exam revealed no neurogenic changes in muscles including proximal muscles. # Normal nerve conduction study and needle/EMG of lower extremities. Nerve Conduction Studies Anti Sensory Summary Table Stim Site NR Peak (ms) P-T Amp (?V) Site1 Site2 Delta-P (ms) Dist (cm) Lebron (m/s) Left Median Anti Sensory (2-3nd Digit) Wrist 4.3 15.9 Wrist 2-3nd Digit 4.3 14.0 33 Wrist 4.7 6.1 Wrist 2-3nd Digit 4.3 14.0 33 Right Median Anti Sensory (2-3nd Digit) Wrist 5.3 18.1 Wrist 2-3nd Digit 5.3 14.0 26 Wrist 5.2 24.4 Wrist 2-3nd Digit 5.3 14.0 26 Left Radial Anti Sensory (Base 1st Digit) Wrist 1.8 22.4 Wrist Base 1st Digit 1.8 0.0 Right Radial Anti Sensory (Base 1st Digit) Wrist 2.5 23.9 Wrist Base 1st Digit 2.5 0.0 Left Sup Fibular Anti Sensory (Ant Lat Mall) 14 cm 3.7 21.6 14 cm Ant Lat Mall 3.7 16.0 43 Right Sup Fibular Anti Sensory (Ant Lat Mall) 14 cm 3.1 15.8 14 cm Ant Lat Mall 3.1 16.0 52 Left Sural Anti Sensory (Lat Mall) Calf 3.6 7.7 Calf Lat Mall 3.6 16.0 44 Right Sural Anti Sensory (Lat Mall) Calf 3.7 12.9 Calf Lat Mall 3.7 16.0 43 Left Ulnar Anti Sensory (5th Digit) Wrist 2.5 56.9 Wrist 5th Digit 2.5 14.0 56 Right Ulnar Anti Sensory (5th Digit) Wrist 2.3 34.3 Wrist 5th Digit 2.3 14.0 61 Motor Summary Table Stim Site NR Onset (ms) O-P Amp (mV) Site1 Site2 Delta-0 (ms) Dist (cm) Lebron (m/s) Left Median Motor (Abd Poll Brev) Wrist 3.9 1.3 Elbow Wrist 4.5 27.0 60 Elbow 8.4 1.4 Right Median Motor (Abd Poll Brev) Wrist 3.8 6.3 Elbow Wrist 4.5 26.0 58 Elbow 8.3 5.1 Left Peroneal Motor (Vastus Med) Ankle 4.1 1.0 Popit Ankle 8.0 42.0 53 Popit 12.1 1.4 Right Peroneal Motor (Vastus Med) Ankle 4.6 4.1 Popit Ankle 7.0 36.0 51 Popit 11.6 3.6 Left Tibial Motor (Abd Moreira Brev) Ankle 4.1 3.5 Knee Ankle 7.4 39.0 53 Knee 11.5 2.3 Right Tibial Motor (Abd Moreira Brev) Ankle 4.1 4.4 Knee Ankle 8.6 40.0 47 Knee 12.7 3.5 Left Ulnar Motor (Abd Dig Minimi) Wrist 2.8 7.6 A Elbow Wrist 4.8 29.0 60 A Elbow 7.6 5.6 Right Ulnar Motor (Abd Dig Minimi) Wrist 2.2 5.2 A Elbow Wrist 5.2 26.0 50 A Elbow 7.4 4.4 B Elbow Wrist 3.8 21.0 55 B Elbow 6.0 3.9 F Wave Studies NR F-Lat (ms) L-R F-Lat (ms) Left Median (Mrkrs) (Abd Poll Brev) 27.95 0.14 Right Median (Mrkrs) (Abd Poll Brev) 27.81 0.14 Left Peroneal (Mrkrs) (EDB) 50.78 0.91 Right Peroneal (Mrkrs) (EDB) 51.70 0.91 Left Tibial (Mrkrs) (Abd Hallucis) 50.78 1.06 Right Tibial (Mrkrs) (Abd Hallucis) 51.84 1.06 Left Ulnar (Mrkrs) (Abd Dig Min) 27.03 0.47 Right Ulnar (Mrkrs) (Abd Dig Min) 27.50 0.47 EMG Side Muscle Nerve Root Ins Act Fibs Amp Dur Recrt Comment Right 1stDorInt Ulnar C8-T1 Nml Nml Nml Nml Nml Right Ext Indicis Radial (Post Int) C7-8 Nml Nml Nml Nml Nml Right Ext Digitorum Radial (Post Int) C7-8 Nml Nml Nml Nml Nml Right BrachioRad Radial C5-6 Nml Nml Nml Nml Nml
== END 2022-09-15 08:38 | disposition home or self-care (01) ==
LOC: ANHNEURO 08:39
PROVIDERS: PCP Family Medicine; Visit Provider Student in an Organized Health Care Education/Training Program
DX: G56.00 Carpal tunnel syndrome, unspecified upper limb (principal); G56.21 Lesion of ulnar nerve, right upper limb
CPT/HCPCS: 95886; 95913

== ENCOUNTER 2023-01-14 14:49 | Outpatient (CLI) | payer OTHER, SELFPAY ==
--- NOTE | ~2023-01-14 | XR_ITS ---
EXAMINATION: XR chest 2V DATE: 01/14/2023 15:21 INDICATION: Productive cough TECHNIQUE: PA and lateral views of the chest are obtained. COMPARISON: 04/30/2022 FINDINGS: The lungs are free of acute opacities. No pleural effusion or pneumothorax. The cardiomedia stinal silhouette is normal. There is moderate thoracic spondylosis. Surgical clips in the upper abdo men on the lateral view are likely from prior cholecystectomy. IMPRESSION: 1. No acute cardiopulmonary abnormality. Reviewed, dictated and finalized at location B.
[2023-01-14 15:13] LABS: Basophils Absolute Auto 0.07 K/mm3 (0.00-0.10); Basophils Percent Auto 0.8 % (0.0-1.0); Eosinophils Absolute Auto 0.18 K/mm3 (0.02-0.50); Eosinophils Percent Auto 2.2 % (1.0-6.0); Hematocrit 45.1 % (35.0-49.0); Hemoglobin 15.2 g/dL (12.0-15.0); Immature Granulocyte Absolute 0.04 K/mm3 (0.00-0.00); Immature Granulocyte Percent A 0.5 % (0.0-0.0); Lymphocytes Absolute Auto 2.04 K/mm3 (1.10-4.50); Lymphocytes Percent Auto 24.7 % (18.0-42.0); Mean Corpuscular HGB Conc 33.7 g/dL (32.0-36.0); Mean Corpuscular Hemoglobin 31.5 pg (27.0-31.0); Mean Corpuscular Volume 93.4 fL (78.0-102.0); Mean Platelet Volume 9.3 fl (9.2-11.8); Monocytes Percent Auto 7.3 % (2.0-11.0); Neutrophils Absolute Auto 5.3 K/mm3 (1.7-7.2); Neutrophils Percent Auto 64.5 % (50.0-70.0); Platelet Count Result 294 K/mm3 (150-420); Red Blood Count 4.83 M/mm3 (4.20-5.40); Red Cell Distribution Width 12.2 % (11.6-14.4); White Blood Count 8.3 K/mm3 (4.8-10.8)
[2023-01-14 15:19] LABS: Appearance Urine Clear (Clear); Bilirubin Urine Negative (Negative); Blood Urine 2+ (Negative); Color Urine Light Yellow (Yellow); Glucose Urine UA Negative (Negative); Ketones Urine Negative (Negative); Leukocyte Esterase Ur Negative LEU/UL (Negative); Nitrate Urine Negative (Negative); Protein Urine Negative (Negative); Specific Grav Ur <= 1.005 (1.010-1.020); Urobilinogen Urine 0.2 mg/dL (0.2-1.0)
[2023-01-14 15:24] LABS: Add Urine Microscopic? YES; Bacteria Urine Trace /hpf; Squamous Epithelial Cell Urine Rare /hpf (Few); WBC Urine None seen /hpf (0-3)
[2023-01-14 15:42] LABS: Alanine Aminotransferase 19 U/L (14-59); Albumin Level 4.2 g/dL (3.4-5.0); Alkaline Phosphatase 87 U/L (46-116); Amylase 52 U/L (25-115); Anion Gap 8 mmol/L (8-16); Aspartate Amino Transferase 17 U/L (15-37); Bilirubin,Total 0.4 mg/dL (0.00-1.00); Blood Urea Nitrogen 17 mg/dL (7-18); Calcium 9.1 mg/dL (8.5-10.1); Carbon Dioxide 29 mmol/L (21-32); Chloride 104 mmol/L (98-108); Estimated Glomerular Filt Rate > 60; Glucose 95 mg/dL (70-99); Lipase 44 U/L (16-77); Osmolality Calculated 293 mOsm/kg (285-295); Potassium 4.2 mmol/L (3.5-5.1); Sodium 141 mmol/L (136-145); Strep Group A RT-PCR NOT DETECTED (Negative); Total Protein 7.2 g/dL (6.4-8.2)
[2023-01-14 15:49] LABS: Influenza A QL RT-PCR Negative (Negative); Influenza B QL RT-PCR Negative (Negative); SARS-CoV-2 RNA PCR Negative (Negative)
== END 2023-01-14 14:50 | disposition home or self-care (01) ==
LOC: CHSLAB 14:51
PROVIDERS: PCP Family Medicine; Visit Provider Family Medicine
DX: J32.9 Chronic sinusitis, unspecified (principal); R05.9 Cough, unspecified; R10.9 Unspecified abdominal pain; Z20.822 Contact with and (suspected) exposure to COVID-19
CPT/HCPCS: 36415; 71046; 80053; 81001; 82150; 83690; 85025; 87636; 87651

== ENCOUNTER 2023-04-14 12:30 | Emergency (ER) | payer OTHER, SELFPAY ==
[2023-04-14] VITALS (11 sets, daily range): BP systolic 100–127; BP diastolic 54–67; PULSE 61–80; RESP 14–20; TEMP 36.3–36.7; O2SAT 97–100
--- NOTE | ~2023-04-14 | XR_ITS ---
XR humerus LT DATE: 04/14/2023 16:43 INDICATION: Post reduction attempt TECHNIQUE: AP and transthoracic views COMPARISON: 04/14/2023 prereduction radiographs FINDINGS: Transverse midshaft humeral fracture is again noted. There is new complete medial displacement and approximately 2.5 cm overriding of the fracture fragmen ts, but only approximately 50% posterior as opposed to complete posterior displacement compared to th e prereduction radiographs. IMPRESSION: Posteromedially displaced overriding midshaft fracture of left humerus Reviewed, dictated and finalized at location L. RT FIREMAN IMPRESSION: Posteromedially displaced overriding midshaft fracture of left bree lashell
--- NOTE | ~2023-04-14 | XR_ITS ---
XR humerus LT DATE: 04/14/2023 13:31 INDICATION: Fall. Pain and swelling of left upper arm TECHNIQUE: AP and crosstable lateral views COMPARISON: None FINDINGS: There is a transverse completely posteriorly displaced fracture of the midshaft of the left humerus with approximately 36 degrees apex anterior angulation. Normal alignment at the acromioclavicular, glenohumeral and elbow joints. IMPRESSION: Transverse posteriorly displaced fracture of the midshaft of the left humerus Reviewed, dictated and finalized at location L. SERVICE TECHNICIAN IMPRESSION: Transverse posteriorly displaced fracture of the midshaft of the le ft humerus
--- NOTE | ~2023-04-14 | XR_ITS ---
EXAMINATION: XR chest 2V DATE: 04/14/2023 13:31 INDICATION: Dizziness. Weakness. TECHNIQUE: Frontal and lateral views of the chest were obtained. COMPARISON: Chest 2 views 01/14/2023, CT abdomen and pelvis 10/29/2021 FINDINGS: There is no pneumonia, pleural effusion, or pneumothorax. The heart size is normal. IMPRESSION: 1. No acute cardiopulmonary disease. Reviewed, dictated and finalized at location A. 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
--- NOTE | 2023-04-14 12:39 | ECG_ITS ---
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
[2023-04-14 13:47] LABS: Basophils Absolute Auto 0.1 K/mm3 (0.0-0.1); Basophils Percent Auto 0.5 % (0.2-1.2); Eosinophils Percent Auto 0.2 % (0-4.4); Hematocrit 48.9 % (37.0-47.0); Hemoglobin 15.3 g/dL (12.0-15.0); Immature Granulocyte Absolute 0.09 K/mm3 (0.00-0.031); Immature Granulocyte Percent A 0.5 % (0-0.5); Immature Platelet Fraction Pct 4.9 % (0.9-11.2); Mean Corpuscular HGB Conc 31.3 g/dl (32-36); Mean Corpuscular Hemoglobin 31.4 pg (26-34); Mean Corpuscular Volume 100.4 fl (80-100); Mean Platelet Volume 9.9 fl (7.4-10.4); Monocytes Percent Auto 5.7 % (2.6-8.5); Neutrophils Absolute Auto 15.9 K/mm3 (1.3-6.7); Neutrophils Percent Auto 87.1 % (45.5-73.1); Platelet Count Result 169 k/mm3 (150-375); Red Blood Count 4.87 M/mm3 (4.2-5.4); Red Cell Distribution Width 12.4 % (11.5-14.5); White Blood Count 18.3 K/mm3 (4.5-10.0)
[2023-04-14 14:01] LABS: Alanine Aminotransferase 21 U/L (6-35); Albumin Level 4.3 g/dL (3.5-5.1); Alkaline Phosphatase 73 U/L (38-126); Anion Gap 12 mmol/L (8-16); Aspartate Amino Transferase 37 U/L (14-36); Bilirubin,Total 0.8 mg/dL (0.2-1.3); Blood Urea Nitrogen 20 mg/dL (7-17); Calcium 8.7 mg/dL (8.4-10.2); Carbon Dioxide 21 mmol/L (22-30); Chloride 105 mmol/L (98-107); Estimated CRCL calculation 63 ml/min; Estimated Glomerular Filt Rate > 60; Glucose 107 mg/dL (65-110); Potassium 4.5 mmol/L (3.4-5.0); Sodium 138 mmol/L (137-145)
[2023-04-14 14:04] LABS: Large Platelets Present; Platelet Estimate Adequate (Adequate); Schistocytes None Seen (NORMAL)
--- NOTE | 2023-04-14 14:11 | ED.UPPEXIN ---
HPI - Extremity Injury (Upper) General Chief Complaint: Extremity Injury, Upper Stated Complaint: fall, arm injury Time Seen by Provider: 04/14/23 13:59 History of Present Illness HPI narrative: Patient is a 58-year-old female who presents to the emergency department this afternoon after she tripped and fell at home landing on her left arm. Patient tried to brace herself with her left hand and felt immediate pain. Patient has not been able to move her left arm since then due to pain. Patient denies any chest pain, shortness of breath, nausea, vomiting, abdominal pain, dysuria, hematuria, constipation, diarrhea, melena, hematochezia, fevers or chills. Patient also denies any headaches, dizziness, lightheadedness, blurry visions, focal weakness, numbness and or tingling. There are no other modifying, alleviating, or precipitating factors at this time. Related Data Home Medications Medication Instructions Recorded Confirmed sertraline 20 mg/mL oral 20 mg PO DAILY 03/08/20 03/08/20 concentrate (Zoloft) omeprazole 20 mg capsule,delayed 20 mg PO BID 07/29/20 release Allergies Allergy/AdvReac Type Severity Reaction Status Date / Time levofloxacin AdvReac Unknown FEARFUL Verified 10/28/22 14:59 IT WILL MAKE FIBROMYLAGIA WORE Review of Systems Review of Systems: All systems are reviewed and are negative unless stated otherwise in the HPI. [facility] Past Medical History Medical History Fibromyalgia HTN (hypertension) Surgical History Surgical History Hx of cholecystectomy Family History Family History Other Carcinoma of colon Family history of Alzheimer's disease Family history of cardiovascular disease Hypertension Social History Social History Smoking status: Former smoker Smoking end date: 06/10/21 Alcohol intake: former Substance use: never Substance use type: does not use Lack of Transportation: No Lack of Food: Never True Current Housing: I Have Housing Concerned About Future Housing: No Difficulty Paying Gas/Electric Bills: No Difficulty Paying for Meds: No Currently Unemployed: YES Education: High School Diploma/GED Difficulty w/ Childcare or Family Care: No Living arrangements: with family Gender identity (if verbalized by the patient): Female Exam Narrative: General: Alert, awake, afebrile, in no acute distress. HEENT: PERRL, no rhinorrhea, no post nasal drip, oropharynx clear. Neck: Trachea midline, no JVD, no lymphadenopathy. Cardiovascular: Regular rate and rhythm, no murmurs, rubs or gallops, no peripheral edema. Respiratory: Clear to auscultation bilaterally, no tachypnea, no wheezing, no rhonchi, no rubs, no respiratory distress. Abdomen: Soft, nontender, nondistended, no rebound, no guarding, no peritoneal signs. Musculoskeletal: Significant left upper extremity swelling and limited range of motion due to pain, intact radial and ulnar pulses of the left upper extremity and equal 2 pulses over the right upper extremity, intact sensation, patient is neurovascularly intact. Skin: No rashes or petechia, no signs of infection. Psychiatric: Alert and oriented, normal behavior and judgment for situation. Neurological: Alert and oriented to person, place, and time. Follows all commands. No focal deficits, speech is clear and fluent. Course Vital Signs Vital signs: Vital Signs Temperature 97.3 F L 04/14/23 12:37 Pulse Rate 67 04/14/23 12:37 Respiratory Rate 20 04/14/23 12:37 Blood Pressure 110/55 L 04/14/23 12:37 Pulse Oximetry 100 04/14/23 12:37 Temperature 97.5 F L 04/14/23 16:25 Pulse Rate 80 04/14/23 19:36 Respiratory Rate 16 04/14/23 19:36 Blood Pressure 121/58 L 04/14/23
[2023-04-14] MEDS: KETAMINE HCL (*CRX) 500 MG/10 ML VIAL 172 MG IV PUSH (15:50)
[2023-04-14] MEDS: SODIUM CHLORIDE 0.9% IV 1,000 ML 999 ML IV CONT (15:50)
--- NOTE | 2023-04-14 16:52 | PC.NURSE ---
Pulse, sensory, and motor still intact after post-reduction xray
[2023-04-14] MEDS: MORPHINE SULFATE (*CRX) 4 MG/ML INJ IV PUSH (16:58)
[2023-04-14] MEDS: ONDANSETRON INJ 4 MG/2 ML VIAL IV PUSH (16:58)
[2023-04-14] MEDS: MORPHINE SULFATE (*CRX) 2 MG/ML INJ IV PUSH (19:32)
== END 2023-04-14 19:54 | disposition home or self-care (01) ==
PROVIDERS: Student in an Organized Health Care Education/Training Program; Emergency Provider Emergency Medicine; PCP Family Medicine
DX: S42.322A Displaced transverse fracture of shaft of humerus, left arm, initial encounter for closed fracture (principal); I10 Essential (primary) hypertension; M79.7 Fibromyalgia; Z90.49 Acquired absence of other specified parts of digestive tract; Z87.891 Personal history of nicotine dependence; R94.31 Abnormal electrocardiogram [ECG] [EKG]; W01.0XXA Fall on same level from slipping, tripping and stumbling without subsequent striking against object, initial encounter
CPT/HCPCS: 24505; 36415; 71046; 73060; 80053; 85025; 85055; 93005; 96374; 96375; 96376; 99285; A4565; J2270; J2405; J7030

== ENCOUNTER 2023-08-26 13:13 | Outpatient (CLI) | payer OTHER, SELFPAY ==
--- NOTE | ~2023-08-26 | MM_ITS ---
EXAMINATION: MM screening raji BI w marino HISTORY: Screening mammogram TECHNIQUE: Craniocaudal and mediolateral oblique 3-D tomosynthesis images were obtained and synthetic 2-D images were generated. CAD analysis was submitted and interpreted. COMPARISON: 05/07/2022, 04/18/2020 bilateral screening mammogram examinations BREAST PARENCHYMAL COMPOSITION: There are scattered areas of fibroglandular density. FINDINGS: There is no evidence of suspicious mass, calcification, or architectural distortion to sugg est malignancy in either breast. There has been no suspicious interval change. IMPRESSION: 1. No mammographic evidence of malignancy. 2. Recommend routine screening mammography in one year. BI-RADS Category 1: Negative Reviewed, dictated and finalized at location A.
== END 2023-08-26 13:14 | disposition home or self-care (01) ==
LOC: CHSIMG 13:15
PROVIDERS: PCP Family Medicine; Visit Provider Family Medicine
DX: Z12.31 Encounter for screening mammogram for malignant neoplasm of breast (principal)
CPT/HCPCS: 77063; 77067

== ENCOUNTER 2023-10-20 15:30 | Outpatient (RCR) | payer OTHER, SELFPAY ==
--- NOTE | 2023-09-12 09:07 | PTOPEVAL1 ---
Assessment and note entered by Tarun Rubin, PT Evaluation Information Assessment Status Evaluation Diagnosis Transverse Fracture of Left humerus, L shoulder pain Onset 04/21/23 Subjective Information Reports that she has history of surgical repair of fracture. She has not currently had any therapy on her shoulder and states that she does not want to do therapy, she just wants her questions answered. She admits that melchor almost three months following surgery she did not get out of her recliner or do anything for the shoulder. She has been lifting and doing laundry and is having pain but doing it. Admits that she may be over lifting. She wants to be able to reach behind her back and improve overall lifting. 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 She reports that she also has pelvic floor issues that have not been addressed. Reports that she came to therapy for pelvic floor evaluation and never returned. Reports that she is having transportation issues. She is left handed. Reported Pain Level Pain Score 3: Self Report Assessment PT Clinical Summary Patient presents with gross ROM loss in dominant shoulder. Weakness noted in internal and external rotation with pain as a symptoms with muscle contraction. Patient is very concerned with reinjury but has done nothing to rehab since surgery. I am concerned with her compliance at this time given her subjective reporting but will plan to initiate and progress as tolerated and allowed. No concerns for therapy initiation and progression at this time. Will benefit from skilled therapy to address functional ROM and strength deficits for gross functional improvement . Plan of Care Interventions Manual Therapy,Neuro Re-education,Therapeutic Activities,Therapeutic Exercise PT Services Indicated Yes Treatment Frequency and 2x/week for 10 visits Duration These treatments will address the objective and functional deficits as defined above. The patient will be advanced safely and appropriately in order for the patient to progress towards his/her prior level of function. Additional exercises will be introduced and as well as a comprehensive home exercise program upon discharge, if needed, ?to ensure carryover of functional gains achieved in the clinic. This treatment plan has been reviewed and agreement upon by the patient.
--- NOTE | 2023-09-12 09:07 | OPREHPOC ---
Outpatient Therapy Plan of Care This is a Multidisciplinary Plan of Care that may contain components documented by all disciplines (PT, OT, and ST.) PT Problem 1 PT Problem #1 Knowledge Deficit PT Goal 1 Goal Haines with HEP Target Visit 4 PT Problem 2 PT Problem #2 Pain PT Goal 1 Goal Patient will report no shoulder pain with side sleeping on L side for improvement in quality and quantity of sleep. Target Visit 8 PT Problem 3 PT Problem #3 Impaired Range of Motion PT Goal 1 Goal Patient will achieve 170 degrees of Left shoulder flexion ROM for improve functional reach Target Visit 10 PT Goal 2 Goal Patient will achieve 80 degrees of L shoulder external ROM for improved self care and dressing Target Visit 10 PT Problem 4 PT Problem #4 Impaired Range of Motion PT Goal 1 Goal Demonstrate active internal reach to L1 of L shoulder for improved self care and dressing ability Target Visit 10 PT Problem 5 PT Problem #5 Impaired Strength PT Goal 1 Goal Achieve L shoulder external rotation strength of 4 +/5 to improve strength and functional use of shoulder Target Visit 10 PT Goal 2 Goal Demonstrate ability to lift 5# x 10 over head for functional reaching ability Target Visit 10
--- NOTE | 2023-09-29 16:26 | PCPTNOTE ---
Patient no show.
--- NOTE | 2023-10-20 16:11 | PTOPDC ---
Assessment and note entered by Charito Gonzalez, PT Discharge Information Assessment Status Discharge Diagnosis Transverse Fracture of Left humerus, L shoulder pain Onset 04/21/23 Subjective Information have been doing the exercises at home; have been able to work in the yard a little, and most activities but not lifting much; have to move it or it gets really tight and stiff; feel like ready to finish therapy and do things at home; Reported Pain Level Pain Score Self Report Additional Pain Score Comments pain range of 1-2/10 in past week; stiffness and tightness over shoulder; cannot lie on her R shoulder in bed yet; Assessment PT Clinical Summary Daria has received 8 PT sessions. Compared to the initial evaluation: pain decreased from 1-5/10 to 1-2/10; increased active ROM and strength of L shoulder; education completed for HEP and pain control with activity/ rest balance. Active L shoulder ROM in standing: flexion 140'; abduction 140'; IR- reach behind back, palm to waist. The goals were partially met. Discharge PT services; she is to continue with her HEP. Plan of Care PT Services Indicated No
== END 2023-10-21 09:29 | disposition home or self-care (01) ==
LOC: ANHPT 15:30
PROVIDERS: PCP Family Medicine
DX: S42.322D Displaced transverse fracture of shaft of humerus, left arm, subsequent encounter for fracture with routine healing (principal)
CPT/HCPCS: 97110; 97140; 97161; 97530; 99199

== ENCOUNTER 2023-11-18 14:33 | Outpatient (CLI) | payer OTHER, SELFPAY ==
--- NOTE | ~2023-11-18 | XR_ITS ---
EXAMINATION: XR lumbar spine 2-3V DATE: 11/18/2023 14:55 INDICATION: Dorsalgia. Lumbar radiculopathy. TECHNIQUE: 3 views of lumbar spine were obtained. COMPARISON: Lumbar spine radiographs 01/17/2020 FINDINGS: There is 4 degrees dextrocurvature of lumbar spine. Vertebral body heights are normal. Ther e is 3 mm anterolisthesis of L4 on L5. Intervertebral disc heights are normal. There are endplate ost eophytes at most levels. There is multilevel facet joint osteoarthritis, severe in lower lumbar spine . IMPRESSION: 1. Mild lumbar spondylosis. Reviewed, dictated and finalized at location E. IMPRESSION: 1. Mild lumbar spondylosis.
--- NOTE | ~2023-11-18 | XR_ITS ---
EXAMINATION: XR thoracic spine 3V DATE: 11/18/2023 14:55 INDICATION: Dorsalgia. Lumbar radiculopathy. TECHNIQUE: 3 views of thoracic spine were obtained. COMPARISON: None. FINDINGS: There is 7 degrees dextrocurvature of thoracic spine. Vertebral body heights are normal. Th ere is mildly decreased disc height at many levels. There are enthesophytes at most levels. Surgical clips in the right upper quadrant are likely from cholecystectomy. IMPRESSION: 1. Mild thoracic spondylosis. Reviewed, dictated and finalized at location E.
== END 2023-11-18 14:34 | disposition home or self-care (01) ==
LOC: CHSIMG 14:35
PROVIDERS: PCP Family Medicine; Visit Provider Family Medicine
DX: M54.16 Radiculopathy, lumbar region (principal); M43.04 Spondylolysis, thoracic region; M43.06 Spondylolysis, lumbar region
CPT/HCPCS: 72072; 72100

== ENCOUNTER 2023-12-28 11:16 | Outpatient (CLI) | payer OTHER, SELFPAY ==
--- NOTE | ~2023-12-28 | CT_ITS ---
EXAMINATION: CT sinus wo con DATE: 12/28/2023 11:34 INDICATION: Chronic sinusitis. TECHNIQUE: Computed tomography (CT) of the paranasal sinuses was performed without intravenous contra st. Iterative reconstruction technique was employed. The dose-length product was 283.39 mGy-cm. COMPARISON: Head CT 03/08/2020 FINDINGS: There is mild mucosal thickening in the frontal sinuses and moderate mucosal thickening of left frontal recess. There is mild mucosal thickening in the bilateral ethmoid sinuses and right sphe noid sinus. The maxillary sinuses are clear. There is leftward deviation of the nasal septum. The ost iomeatal units are patent. IMPRESSION: 1. Mucosal thickening in the paranasal sinuses. 2. Leftward deviation of the nasal septum. Reviewed, dictated and finalized at location A.
== END 2023-12-28 11:17 | disposition home or self-care (01) ==
LOC: ANHIMG 11:17
PROVIDERS: PCP Family Medicine; Visit Provider Otolaryngology
DX: J32.9 Chronic sinusitis, unspecified (principal); J34.2 Deviated nasal septum; J34.89 Other specified disorders of nose and nasal sinuses
CPT/HCPCS: 70486

== ENCOUNTER 2024-02-22 11:05 | Outpatient (CLI) | payer OTHER, SELFPAY ==
[2024-02-22 11:18] LABS: Basophils Absolute Auto 0.07 K/mm3 (0.00-0.10); Basophils Percent Auto 0.8 % (0.0-1.0); Eosinophils Absolute Auto 0.22 K/mm3 (0.02-0.50); Eosinophils Percent Auto 2.4 % (1.0-6.0); Hematocrit 44.8 % (35.0-49.0); Hemoglobin 15.1 g/dL (12.0-15.0); Immature Granulocyte Absolute 0.03 K/mm3 (0.00-0.00); Immature Granulocyte Percent A 0.3 % (0.0-0.0); Lymphocytes Absolute Auto 2.16 K/mm3 (1.10-4.50); Lymphocytes Percent Auto 23.5 % (18.0-42.0); Mean Corpuscular HGB Conc 33.7 g/dL (32-36); Mean Corpuscular Hemoglobin 30.9 pg (27.0-31.0); Mean Corpuscular Volume 91.8 fL (78.0-102.0); Monocytes Absolute Auto 0.73 K/mm3 (0.10-0.90); Monocytes Percent Auto 7.9 % (2.0-11.0); Neutrophils Absolute Auto 5.98 K/mm3 (1.70-7.20); Neutrophils Percent Auto 65.1 % (50.0-70.0); Platelet Count Result 266 K/mm3 (150-420); Red Blood Count 4.88 M/mm3 (4.20-5.40); Red Cell Distribution Width 12.9 % (11.6-14.4); White Blood Count 9.2 K/mm3 (4.8-10.8)
[2024-02-22 11:22] LABS: Add Urine Microscopic? YES; Appearance Urine Clear (Clear); Bilirubin Urine Negative (Negative); Blood Urine 1+ (Negative); Color Urine Light Yellow (Yellow); Glucose Urine UA Negative (Negative); Ketones Urine Negative (Negative); Leukocyte Esterase Ur Negative (Negative); Nitrate Urine Negative (Negative); Protein Urine Negative (Negative); Specific Grav Ur <= 1.005 (1.010-1.020); Urobilinogen Urine 0.2 mg/dL (0.2-1.0)
[2024-02-22 11:26] LABS: Bacteria Urine Rare /hpf; RBC Urine 0-2 /hpf (0-2); Squamous Epithelial Cell Urine Few /hpf (Few); WBC Urine None seen /hpf (0-3)
[2024-02-22 11:29] LABS: MALB Creatinine Ratio 20.2 mg/g (0-30); Microalbumin Urine Random < 13.0 mg/L
[2024-02-22 12:26] LABS: Alanine Aminotransferase 23 U/L (14-59); Albumin Level 3.8 g/dL (3.4-5.0); Alkaline Phosphatase 106 U/L (46-116); Anion Gap 10 mmol/L (4-12); Aspartate Amino Transferase 17 U/L (15-37); Bilirubin,Total 0.6 mg/dL (0.00-1.00); Blood Urea Nitrogen 12 mg/dL (7-18); Carbon Dioxide 28 mmol/L (21-32); Chloride 101 mmol/L (98-108); Estimated Glomerular Filt Rate > 60; Glucose 102 mg/dL (70-99); Osmolality Calculated 287 mOsm/kg (285-295); Potassium 4.2 mmol/L (3.5-5.1); Sodium 139 mmol/L (136-145); Total Protein 7.3 g/dL (6.4-8.2)
== END 2024-02-22 11:06 | disposition home or self-care (01) ==
LOC: CHSLAB 11:08
PROVIDERS: PCP Family Medicine; Visit Provider Family Medicine
DX: I10 Essential (primary) hypertension (principal)
CPT/HCPCS: 36415; 80053; 81001; 82043; 84443; 85025

== ENCOUNTER 2024-03-08 14:00 | Outpatient (RCR) | payer OTHER, SELFPAY ==
--- NOTE | 2024-01-12 11:01 | OPREHPOC ---
Outpatient Therapy Plan of Care This is a Multidisciplinary Plan of Care that may contain components documented by all disciplines (PT, OT, and ST.) PT Problem 1 PT Problem #1 Knowledge Deficit PT Goal 1 Goal 1. Patient will perform independent HEP Target Visit 2 PT Problem 2 PT Problem #2 Pain PT Goal 1 Goal 1. Abdominal pain no higher than 2/10 with normal ADL's 2. Patient able to sit at least 30 minutes without pain Target Visit 5 PT Problem 3 PT Problem #3 Impaired Functional ADLs PT Goal 1 Goal 1. Pt able to have BM with no more than 10 minutes on the toilet Target Visit 5
--- NOTE | 2024-01-12 11:02 | PTOPEVAL1 ---
Assessment and note entered by Candelaria Millard DPT Evaluation Information Assessment Status Evaluation Diagnosis k59.02, k58.1, r14.0, r10.9 Subjective Information Pt reports previous pelvic PT but had trouble getting back to therapy due to other health issues . Reports she had her gall bladder removed in 2018 and appendix taken out 2019 and started having issues after. Abdominal pain that is constant ( highest pain 10/10 and lowest 2/10) and numbness in her buttocks. States she has told her muscles are tight and has been given linszess but does not take it daily. Uses external stimulation in order to have a BM. Voids 8 times a day and wakes up at least twice. Can hold urge to void up to 10 minutes. Very infrequent urinary incontinence. Denies pain with urination. BM daily but reports straining and needing to spend a lot of time on the toilet, always has some discomfort but it is not increased by BM. Denies fecal incontinence. Denies history of pelvic pain. Has been diagnosed with IBS, no other b/b history. Pt has been 1 time, vaginal delivery. Tubal ligation at 24. Pain increases with prolonged sitting. Patient goal: get rid of sense of numbness and pain Diet: eats breakfast lunch and dinner, states she always eats at home. Minimal dairy except cheese due to IBS. Drinks approximately 3 12 ounce bottles of water and 3 glasses of black tea a day. Alcohol very infrequently. Reports recent weight gain and family trauma. Reported Pain Level Pain Score 0: Self Report Assessment PT Clinical Summary The patient is presenting to skilled therapy with a history of IBS with constipation and abdominal pain. She presents with increased pelvic floor muscle tone as well as decreased strength/ endurance. She will benefit from therapy to address these impairments in order to reduce pain and improve function. Plan of Care Interventions Electrical Stimulation,Hot Pack/Cold Pack,Manual Therapy,Neuro Re-education,Patient/Caregiver Education,Therapeutic Activities,Therapeutic Exercise PT Services Indicated Yes Treatment Frequency and 1 time a week for 5 visits Duration These treatments will address the objective and functional deficits as defined above. The patient will be advanced safely and appropriately in order for the patient to progress towards his/her prior level of function. Additional exercises will be introduced and as well as a comprehensive home exercise program upon discharge, if needed, ?to ensure carryover of functional gains achieved in the clinic. This treatment plan has been reviewed and agreement upon by the patient.
--- NOTE | 2024-02-09 14:06 | OPREHPOC ---
Outpatient Therapy Plan of Care This is a Multidisciplinary Plan of Care that may contain components documented by all disciplines (PT, OT, and ST.) PT Problem 1 PT Problem #1 Knowledge Deficit PT Goal 1 Goal / Goal Update 1. Patient will perform independent HEP Target Visit 2 Progress Met PT Problem 2 PT Problem #2 Pain PT Goal 1 Goal / Goal Update 1. Abdominal pain no higher than 2/10 with normal ADL's 2. Patient able to sit at least 30 minutes without pain Target Visit 8 Progress Partially Met PT Problem 3 PT Problem #3 Impaired Functional ADLs PT Goal 1 Goal / Goal Update 1. Pt able to have BM with no more than 10 minutes on the toilet Target Visit 5 Progress Met
--- NOTE | 2024-02-09 14:06 | PTOPPROG ---
Assessment and note entered by Candelaria Millard DPT Evaluation Information Assessment Status Progress Diagnosis k59.02, k58.1, r14.0, r10.9 Subjective Information Highest pain recently 11/06 and lowest 06/08. Reports pain has decreased some during therapy but continues to report numbness around her rectum as well. States she has not had to strain with BM, it's been good . Assessment PT Clinical Summary The patient has made some progress in therapy. She reports overall decreased pain and reports no difficulty or straining with BM recently. She demonstrates improved hip strength and improved pelvic floor muscle tone, strength, and endurance. Due to her progress but continued pain she will benefit from further therapy to address pain and improve function. Plan of Care Interventions Electrical Stimulation,Hot Pack/Cold Pack,Manual Therapy,Neuro Re-education,Patient/Caregiver Education,Therapeutic Activities,Therapeutic Exercise PT Services Indicated Yes Treatment Frequency and 1 visit every other week x 3 visits Duration These treatments will address the objective and functional deficits as defined above. The patient will be advanced safely and appropriately in order for the patient to progress towards his/her prior level of function. Additional exercises will be introduced and as well as a comprehensive home exercise program upon discharge, if needed, ?to ensure carryover of functional gains achieved in the clinic. This treatment plan has been reviewed and agreement upon by the patient.
--- NOTE | 2024-03-22 14:08 | PCPTNOTE ---
Patient called to cancel appointment on 03/22/24 due to having the flu.
--- NOTE | 2024-03-29 13:09 | PCPTNOTE ---
Patient called to cancel appointment 03/29/24 due to illness.
== END 2024-04-11 23:59 | disposition home or self-care (01) ==
LOC: ANHPT 14:00
PROVIDERS: PCP Family Medicine
DX: K59.02 Outlet dysfunction constipation (principal); K58.1 Irritable bowel syndrome with constipation; R14.0 Abdominal distension (gaseous); R10.9 Unspecified abdominal pain
CPT/HCPCS: 97110; 97112; 97140; 97162; 97530

== ENCOUNTER 2024-04-20 08:27 | Outpatient (CLI) | payer OTHER, SELFPAY ==
--- NOTE | ~2024-04-20 | CT_ITS ---
CT Scan of the Chest without Contrast: Clinical Indication: Lung cancer screening, nicotine dependence Technique: Contiguous sections were acquired throughout the chest without intravenous contrast. Dose reduction technique was used on this scan by utilizing automated exposure control and iterative recon struction technique. The dose-length product (DLP) was 181.92 mGy-cm. COMPARISON: 03/27/2021 Findings: There is no evidence of any significant mediastinal, hilar or axillary lymphadenopathy. The mediastin al soft tissues appear normal. There is no evidence of pleural or pericardial effusion. The lungs are clear. No pulmonary nodules or infiltrates are noted. Images through the upper abdomen reveal no abnormalities. Impression: Lung RADS 1: Negative. 12 month follow-up screening CT advised. Reviewed, dictated and finalized at location . [facility] Impression: Lung RADS 1: Negative. 12 month follow-up screening CT advised.
== END 2024-04-20 08:28 | disposition home or self-care (01) ==
PROVIDERS: PCP Family Medicine; Visit Provider Family Medicine
DX: Z12.2 Encounter for screening for malignant neoplasm of respiratory organs (principal); Z87.891 Personal history of nicotine dependence
CPT/HCPCS: 71271

== ENCOUNTER 2024-07-30 09:37 | Emergency (ER) | payer OTHER, SELFPAY ==
[2024-07-30 09:43] VITALS: BP 115/58; PULSE 94; RESP 18; TEMP 36.6; O2SAT 98
[2024-07-30 12:01] LABS: Add Urine Microscopic? YES; Appearance Urine Turbid (Clear); Bacteria Urine 4+ /hpf; Bilirubin Urine Negative (Negative); Blood Urine 3+ (Negative); Color Urine Yellow (Yellow); Glucose Urine UA Negative (Negative); Ketones Urine Trace mg/dL (Negative); Leukocyte Esterase Ur 3+ LEU/UL (Negative); Need Manual Microscopic Reviewed; Nitrate Urine Positive (Negative); Non Pathogenic Casts 0-2; Protein Urine 3+ mg/dL (Negative); RBC Urine >100 /hpf (0-2); Specific Grav Ur 1.016 (1.001-1.035); Squamous Epithelial Cell Urine Occasional /hpf (Few); Urobilinogen Urine 0.2 mg/dL (<2.0); WBC Clumps Urine Present /HPF; WBC Urine >100 /hpf (0-3); pH Urine 5.5 (5.0-9.0)
--- NOTE | 2024-07-30 12:22 | ED.GENADULT ---
HPI - General Adult General Chief complaint: Urogenital-Female Stated complaint: yeast infection, dysuria Time Seen by Provider: 07/30/24 11:28 History of Present Illness HPI narrative: Patient is a 59-year-old female who presents ER with burning urination. Ongoing over last 4-5 days. Had recently been on antibiotic and has been having some vaginal discharge and discomfort as well. No fevers or chills or sweats. Mild discomfort in her left flank. Related Data Home Medications ?Medication ?Instructions ?Recorded ?Confirmed ?Last Taken ?Type amlodipine 10 mg tablet 10 mg PO DAILY 04/18/24 07/20/24 Unknown History buspirone 15 mg tablet 15 mg PO ONCE 04/18/24 07/20/24 Unknown History sertraline 100 mg tablet 150 mg PO DAILY 04/18/24 07/20/24 Unknown History Allergies Allergy/AdvReac Type Severity Reaction Status Date / Time levofloxacin AdvReac Unknown FEARFUL Verified 07/20/24 09:00 IT WILL MAKE FIBROMYLAGIA WORE Review of Systems Review of Systems: All systems reviewed & are unremarkable except as noted in HPI and below Constitutional: Constitutional: Reports no additional constitutional complaints ENT: Reports system reviewed and no additional complaints, except as documented Respiratory: Respiratory: Reports no additional respiratory complaints Gastrointestinal: Gastrointestinal: Reports no additional gastrointestinal complaints Genitourinary: Genitourinary: Reports no additional female genitourinary complaints [facility] Past Medical History Medical History Benign essential tremor Fibromyalgia HTN (hypertension) Surgical History Surgical History H/O cervical spine surgery Hx of cholecystectomy Family History Family History Other Carcinoma of colon Family history of Alzheimer's disease Family history of cardiovascular disease Hypertension Social History Social History Smoking status: Former smoker Smoking end date: 06/10/21 Alcohol intake: former Substance use: never Substance use type: does not use Lack of Transportation: No Lack of Food: Never True Current Housing: I Have Housing Concerned About Future Housing: No Difficulty Paying Gas/Electric Bills: No Difficulty Paying for Meds: No Currently Unemployed: YES Education: High School Diploma/GED Difficulty w/ Childcare or Family Care: No Living arrangements: with family Gender identity (if verbalized by the patient): Female Exam Narrative: GENERAL: Well-appearing, well-nourished, and in no acute distress. HEAD: Normocephalic, atraumatic. ENT: Mucous membranes moist. CHEST: Clear to auscultation. No respiratory distress. HEART: Regular rate and rhythm. Normal peripheral pulses. ABDOMEN: Soft, nontender, nondistended. Mild left CVA tenderness. EXTREMITIES: Normal range of motion. No edema. SKIN: Warm, dry, no rash. NEURO: Alert and oriented x3. PSYCH: Normal mood and affect. Course Course Emergency Course: Patient has had ciprofloxacin and feels comfortable taking it despite reservations about levaquin. She also received Diflucan prescription. D/c home. Vital Signs Vital signs: Vital Signs Temperature 97.9 F 07/30/24 09:43 Pulse Rate 94 07/30/24 09:43 Respiratory Rate 18 07/30/24 09:43 Blood Pressure 115/58 L 07/30/24 09:43 Pulse Oximetry 98 07/30/24 09:43 Temperature 97.9 F 07/30/24 09:43 Pulse Rate 94 07/30/24 09:43 Respiratory Rate 18 07/30/24 09:43 Blood Pressure 115/58 L 07/30/24 09:43 Pulse Oximetry 98 07/30/24 09:43 Medical Decision Making Vital Signs Vital Signs: Vital Signs Temperature 97.9 F 07/30/24 09:43 Pulse Rate 94 07/30/24 09:43 Respiratory Rate 18 07/30/24 09:43 Blood Pressure 115/58 L 07/30/24 09:43 Pulse Oximetry 98 07/30/24 09:43 Temperature 97.9 F 07/30/24 09:43 Pulse Rate 94 07/30/24 09:43 Respiratory Rate 18 07/30/24 09:43 Blood Pressure 115/58 L 07/30/24 09:43 Pulse Oximetry 98 07/30/24 09:43 Lab Data Labs: Lab Results 07/30/24 Range/Units 11:41 Urine Color Yellow (Yellow) Urine Appearance Turbid H (Clear) Urine pH 5.5 (5.0-9.0) Ur Specific [place] 1.016 (1.001-1.035) Urine Protein 3+ H (Negative) mg/dL Urine Glucose (UA) Negative (Negative) mg/dL Urine Ketones Trace H (Negative) mg/dL Ur Blood (Man) 3+ H (Negative) Urine Nitrate Positive H (Negative) Urine Bilirubin Negative (Negative) Urine Urobilinogen 0.2 (<2.0) mg/dL Add Ur Microanalysis Reviewed Leukocyte Esterase Rfl 3+ H (Negative) [facility] Urine RBC >100 H (0-2) /hpf Urine WBC >100 H (0-3) /hpf Urine WBC Clumps Present H (None) /HPF Ur Squamous Epith Cells Occasional (Few) /hpf Urine Bacteria 4+ H /hpf Urine Casts 0-2 Discharge Plan Discharge Clinical Impression: Pyelonephritis, Yeast infection Patient Disposition: Home, Self-Care Condition: Stable Instructions: Antibiotic Form, Urinary Tract Infection in Women (ED), Yeast Infection (ED) Additional Instructions: You should return to the emergency department if you develop severe nausea and vomiting and are unable to keep liquids down, if you develop severe back/flank or stomach pain, or if your symptoms are not clearly improving at home. Patient Language: Lao Prescriptions: New ciprofloxacin HCl 500 mg tablet 500 mg PO Q12H Qty: 20 0RF fluconazole 150 mg tablet 150 mg PO DAILY Qty: 1 0RF promethazine 12.5 mg tablet 12.5 mg PO TID Qty: 14 0RF No Action sertraline 100 mg tablet 150 mg PO DAILY buspirone 15 mg tablet 15 mg PO ONCE amlodipine 10 mg tablet 10 mg PO DAILY amoxicillin 875 mg tablet 875 mg PO Q12H Qty: 14 0RF cyclobenzaprine 10 mg tablet 10 mg PO TID PRN (Reason: muscle spasm) Qty: 20 0RF gabapentin 300 mg capsule 600 mg PO TID Qty: 120 5RF Follow-up/Referrals: Deisi Magallanes DO [Primary Care Provider] - 1 Week
== END 2024-07-30 12:42 | disposition home or self-care (01) ==
PROVIDERS: Emergency Provider Emergency Medicine; PCP Family Medicine
DX: N12 Tubulo-interstitial nephritis, not specified as acute or chronic (principal); B37.9 Candidiasis, unspecified; Z87.891 Personal history of nicotine dependence
CPT/HCPCS: 81001; 87086; 87186; 99283

== ENCOUNTER 2024-10-04 12:30 | Outpatient (RCR) | payer OTHER, SELFPAY ==
--- NOTE | 2024-07-06 12:00 | OPREHPOC ---
Outpatient Therapy Plan of Care This is a Multidisciplinary Plan of Care that may contain components documented by all disciplines (PT, OT, and ST.) PT Problem 1 PT Problem #1 Knowledge Deficit PT Goal 1 Goal / Goal Update *indep with HEP Target Visit 8 PT Goal 1 Goal / Goal Update *pt report pain at worst rating of 5/10, to improve activity tolerance Target Visit 8 PT Problem 3 PT Problem #3 Impaired Strength PT Goal 1 Goal / Goal Update *increase thoracic and trunk strength, to improve stability to spine and posture correction: pt perform 20 reps of strengthening exercises in standing and on mat * pt maintain correct position and posture with exercises Target Visit 8
--- NOTE | 2024-07-06 12:00 | PTOPEVAL1 ---
Assessment and note entered by Charito Gonzalez, PT Evaluation Information Assessment Status Evaluation ICD-10 Condition Codes (PT) Radiculopathy, thoracolumbar region M54.15 Other ICD-10 Condition Codes ( dorsalgia M54.9 PT) Onset Jan 2024 Subjective Information gradual increase in back pain, have chronic back pain-- lower and upper back; was told she had 2 discs in her back that are slipping in/out and she needed surgery - per another general dr has not been to back specialist MRI thoracic in 2022: osteophytes T 9-10 no PT for her back activity- not working; home with , is not doing lifting; home cleaning and activities increase her pain; cannot get on the floor any longer Reported Pain Level Pain Score Self Report Additional Pain Score Comments pain range in the past week: 3-7/10 spasms, middle of back has a nerve that spasms and hurts really intense- like labor pain pt points to thoracic spine increase pain: any activity causes spasms decrease pain: rest, heating pad, muscle relaxer PRN sleeping--difficult due to cannot lie on L side since surgery on shoulder; spasms when change positions in bed. does not wear any brace or back support Assessment PT Clinical Summary Daria has the diagnosis of dorsalgia. She has history of chronic neck and back pain, s/p cervical fusion and L rotator cuff surgery. Oswestry self assessment of 40% limitation in activity level. Reports decreased activity level with home tasks, sleeping and self care due to pain. She is not working. With the evaluation: she has pain over mid to lower thoracic area; with movements in standing, supine and prone, did not duplicate her spasms -- reports they occur mostly in bed; posture with flat thoracic spine and increase lumbar lordosis. Skilled PT services are indicated for modalities to decrease pain, therapeutic exercises to increase thoracic strength and support to her spine and improve posture, with education for HEP and posture education. Plan of Care Interventions Electrical Stimulation,Hot Pack/Cold Pack,Manual Therapy,Neuro Re-education,Patient/Caregiver Education,Therapeutic Activities,Therapeutic Exercise,Ultrasound,Other Other Interventions taping PT Services Indicated Yes Treatment Frequency and 1-2x/wk for 8 visits Duration These treatments will address the objective and functional deficits as defined above. The patient will be advanced safely and appropriately in order for the patient to progress towards his/her prior level of function. Additional exercises will be introduced and as well as a comprehensive home exercise program upon discharge, if needed, ?to ensure carryover of functional gains achieved in the clinic. This treatment plan has been reviewed and agreement upon by the patient.
--- NOTE | 2024-08-23 09:56 | PCPTNOTE ---
Patient cancelled today's Progress Visit secondary to illness. Rescheduled to 09/06.
--- NOTE | 2024-09-06 13:00 | OPREHPOC ---
Outpatient Therapy Plan of Care This is a Multidisciplinary Plan of Care that may contain components documented by all disciplines (PT, OT, and ST.) PT Problem 1 PT Problem #1 Knowledge Deficit PT Goal 1 Goal / Goal Update *indep with HEP Target Visit 8 Progress Met PT Goal 1 Goal / Goal Update *pt report pain at worst rating of 5/10, to improve activity tolerance -Minor setback noted Target Visit 8 Progress Partially Met PT Problem 3 PT Problem #3 Impaired Strength PT Goal 1 Goal / Goal Update *increase thoracic and trunk strength, to improve stability to spine and posture correction: pt perform 20 reps of strengthening exercises in standing and on mat * pt maintain correct position and posture with exercises -Continues to need postural cueing, especially this date secondary to pain Target Visit 8 Progress Partially Met
--- NOTE | 2024-09-06 13:00 | PTOPPROG ---
Assessment and note entered by Tarun Rubin, PT Evaluation Information Assessment Status Progress ICD-10 Condition Codes (PT) Radiculopathy, thoracolumbar region M54.15 Other ICD-10 Condition Codes ( dorsalgia M54.9 PT) Onset Jan 2024 Subjective Information Reports that overall she was doing very well but had a setback about 2 weeks ago. Reports that therapy as really helping and she does not remember a mechanism of injury to affect her current issue. Would like to keep the therapy going to continue as it helped prior and is unsure what set it off but would like to resolve it again. Assessment PT Clinical Summary Patient was seeing a lot of progress but appears to have seen a subjective setback in significant pain level increase. Appears discogenic at this time. Will continue to benefit from skilled therapy to address these deficits. Emphasis to be placed on core stabilization and hip strengthening for functional form. Plan of Care Interventions Electrical Stimulation,Hot Pack/Cold Pack,Manual Therapy,Neuro Re-education,Patient/Caregiver Education,Therapeutic Activities,Therapeutic Exercise,Ultrasound,Other Other Interventions taping PT Services Indicated Yes Treatment Frequency and 1x/week for 6 weeks Duration These treatments will address the objective and functional deficits as defined above. The patient will be advanced safely and appropriately in order for the patient to progress towards his/her prior level of function. Additional exercises will be introduced and as well as a comprehensive home exercise program upon discharge, if needed, ?to ensure carryover of functional gains achieved in the clinic. This treatment plan has been reviewed and agreement upon by the patient.
== END 2024-10-04 23:59 | disposition home or self-care (01) ==
LOC: ANHPT 12:30
PROVIDERS: PCP Family Medicine; Visit Provider Family Medicine
DX: M54.9 Dorsalgia, unspecified (principal)
CPT/HCPCS: 97110; 97140; 97161; 97530

== ENCOUNTER 2024-10-15 14:48 | Outpatient (RCR) | payer OTHER, SELFPAY ==
--- NOTE | 2024-10-15 13:43 | OPREHPOC ---
Outpatient Therapy Plan of Care This is a Multidisciplinary Plan of Care that may contain components documented by all disciplines (PT, OT, and ST.) PT Problem 1 PT Problem #1 Knowledge Deficit PT Goal 1 Goal / Goal Update *indep with HEP Target Visit 8 Progress Met PT Goal 1 Goal / Goal Update *pt report pain at worst rating of 5/10, to improve activity tolerance -Minor setback noted Target Visit 8 Progress Met PT Problem 3 PT Problem #3 Impaired Strength PT Goal 1 Goal / Goal Update *increase thoracic and trunk strength, to improve stability to spine and posture correction: pt perform 20 reps of strengthening exercises in standing and on mat * pt maintain correct position and posture with exercises -Continues to need postural cueing, especially this date secondary to pain Target Visit 8 Progress Met
--- NOTE | 2024-10-15 13:43 | PTOPDC ---
Assessment and note entered by Tarun Rubin, PT Evaluation Information Assessment Status Discharge ICD-10 Condition Codes (PT) Radiculopathy, thoracolumbar region M54.15 Other ICD-10 Condition Codes ( dorsalgia M54.9 PT) Onset Jan 2024 Subjective Information Reports that she continues to deal with some pain, but overall is doing fairly well. No concerns at this time with her exercises and plans to continue them as instructed. Requests discharge at this time. Reported Pain Level Pain Score 0: Self Report Assessment PT Clinical Summary Patient met all goals for therapy and is suitable for discharge to [facility] at this time. Reflects understanding of HEP and plan for continued core strengthening in home. Plan of Care PT Services Indicated Yes
== END 2024-10-15 14:48 | disposition home or self-care (01) ==
LOC: ANHPT 14:48
PROVIDERS: PCP Family Medicine; Visit Provider Family Medicine
DX: M54.9 Dorsalgia, unspecified (principal)
CPT/HCPCS: 97110; 97530

== ENCOUNTER 2024-10-24 07:12 | Outpatient (CLI) | payer OTHER, SELFPAY ==
--- NOTE | ~2024-10-24 | US_ITS ---
Renal-Bladder ultrasound Clinical History: Microscopic hematuria Technique: Real-time sonographic imaging of the kidneys and urinary bladder was performed. Findings: The right kidney measures 10.9 cm in length and the left kidney measures 10.4 cm. There is no hydronephrosis or renal calculus identified. Renal cortical echogenicity is within normal limits. No renal mass lesion is identified. The urinary bladder is moderately distended at the time of this exam. No intraluminal echoes are iden tified. No abnormal wall thickening is seen. Impression: Unremarkable ultrasound of the kidneys and urinary bladder. Reviewed, dictated and finalized at location . Impression: Unremarkable ultrasound of the kidneys and urinary bladder.
--- OUTSIDE RECORDS SUMMARY | 2024-10-24 07:16 | XMS_ITS | Data Portability ---
Author Organization [place] [facility], Main Office Address [address] [place] [address] Care Team Providers Care Import Specialist Name Role Phone ANNA RODRIGUEZ Primary Care Provider [phone] Assessment No assessment recorded. Plan of Treatment Reminders Order Date Submit Date Provider Last Modified By Organization Details Last Modified Time Details Appointments Surgery 2024 09:00A Nasir Greenwood MD Not available Not available Not available Post-Op 15 2024 01:15P Nasir Greenwood MD Not available Not available Not available Lab None recorded. Referral None recorded. Procedures None recorded. Surgeries septoplas ty (SURG) 2024 025 Not available 09/06/2024 15:08:13 endoscopy , nasal/sin us, w/ maxillary antrostom y & tissue removal (SURG) 2024 025 Not available 09/06/2024 15:08:13 endoscopy , nasal/sin us, with frontal sinus explorati on (SURG) 2024 025 Not available 09/06/2024 15:08:13 endoscopy , nasal/sin us, w/ total ethmoidec michael (SURG) 2024 025 Not available 09/06/2024 15:08:13 endoscopy , nasal/sin us, w/ sphenoido michael (SURG) 2024 025 Not available 09/06/2024 15:08:13 Imaging None recorded. Medication Orders clindamyc in HCl 300 mg capsule 2023 024 [facility] [address] [place], [address], 09/06/2024 14:18:08 Medrol (Maldonado) 4 mg tablets in a dose pack [address] [facility] [address] [place], [address], 09/06/2024 14:18:02 cefdinir 300 mg capsule 2023 024 [facility] [address] [place], [address], 2024 15:24:37 Patient TargetsNo targets recorded. Patient Instructions Encounter Date Encounter Id Patient Instructions Last Modified By Organization Details Last Modified Time 2024 [id number] she agrees to tr y clindamycin and will see how well this works for her Medrol Dosepak [email or web address] Not available 2024 15:34:18 Reason for Referral None Reported. Results Created Date Observation Date Name Description Value Unit Range Abnormal Flag Note LastModifiedBy Organization Detail LastModifiedTime 12/28/19 24 12/28/2023 CT, sinus es, w/o contr ast No observ ation record ed. [address], [place], [address], 12/29/2023 09:56:56 12/30/19 24 12/30/2023 CT, sinus es, w/o contr ast No observ ation record ed. [facility] [address], [place], [address], 01/02/2024 08:48:30 Result Notes None recorded. Problems Name Problem SNOMED Code Status Onset Date Resolution Date Notes Provider Name and Address Organization Details Recorded Time Chronic sinusitis 48766446 Active 2023 PAYTON Grossman null, [place] [facility] 14:43:28 Deviated nasal septum 433496361 Active 2023 Ganga Greenwood MD [address] [facility], [facility] [address], [place], [address], [facility] [employer] [facility] 4 14:46:00 Essential tremor 147829853 Completed 202302/01/2024 PAYTON Grossman, [facility] [employer] [facility] 4 15:26:39 Chronic frontal sinusitis 37516644 Active 2024 Ganga Greenwood MD [address], [address], [facility] [employer] [facility] [employer] [facility] 5 14:40:02 Chronic ethmoidal sinusitis 72076386 Active 2024 Ganga Greenwood MD [address], [address], [facility] [employer] [facility] [employer] [facility] 5 14:40:10 Chronic maxillary sinusitis 92361588 Active 2024 Ganga Greenwood MD [address], [address], [facility] [employer] [facility] [employer] [facility] 5 14:40:19 Chronic sphenoidal sinusitis 16118331 Active 2024 Ganga Greenwood MD [address], [address], [facility] [employer] [facility] [employer] [facility] 14:40:28 Problem Notes None recorded. Procedures Surgical History Date Name Laterality Status Provider Name and Address Organization Details Recorded Time Sinus Surgery completed PAYTON Santos [facility] [employer] [facility] 12/20/2023 12:04:06 Imaging Results None recorded. Procedure Notes None recorded. Medical Equipment None Reported. Allergies Allergen ID Allergen Name Allergen Category Reaction Reaction Severity Criticality Documentation Date Start Date Code Code System Note Provider Name and Address Organization Details Recorded Time 32012 Levaquin medicatio n Not available Not available Not available 07/28/2022 81536 2 RxNorm This aller gy was alrea dy on file, I did not add it, I asked pt. what her react ion is and she respo nded- she just doesn 't want to take it.- FT PAYTON Grossman, [place] [facility] 4 12:06:50 Medications Name Sig Start Date Stop Date Status Note LastModified by Organization Details LastModified Time cyclobenzap rine 10 mg tablet TAKE 1 TABLET BY MOUTH THREE TIMES DAILY NEEDED FOR MUSCLE SPASM active Not Available Not Available No t Available amoxicillin 500 mg capsule TAKE 1 CAPSULE BY MOUTH THREE TIMES DAILY UNTIL GONE 06/19 completed Not Available Not Available Not Available clindamycin HCl 300 mg capsule TAKE 1 CAPSULE BY MOUTH 4 TIMES DAILY UNTIL GONE 09/06 completed Not Available Not Available Not Available trazodone 50 mg tablet PRN TAKE 1 TABLET BY MOUTH NEEDED AT BEDTIME 01/31 completed Not Available Not Available Not Available cetirizine 10 mg tablet TAKE 1 TABLET BY MOUTH ONCE DAILY 12/21 completed Not Available Not Available Not Available azithromyci n 250 mg tablet TAKE 2 TABLETS BY MOUTH ON DAY 1, AND THEN TAKE 1 TABLET BY MOUTH ONCE A DAY ON DAY 2 THROUGH DAY 5 12/21 completed Not Available Not Available Not Available fluconazole 150 mg tablet TAKE 1 TABLET BY MOUTH ONCE DAILY 09/06 completed Not Available Not Available Not Available ranitidine 300 mg tablet TAKE 1 TABLET BY MOUTH ONCE DAILY 06/19 completed Not Available Not Available Not Available hydrocodone 5 mg-acetamin ophen 325 mg tablet TAKE 1 TABLET BY MOUTH EVERY 6 HOURS NEEDED FOR PAIN 12/21 completed Not Available Not Available Not Available sucralfate 1 gram tablet TAKE 1 TABLET BY MOUTH EVERY 6 HOURS 06/19 completed Not Available Not Available Not Available promethazin e 12.5 mg tablet TAKE 1 TABLET BY MOUTH THREE TIMES DAILY active Not Available Not Available No t Available sertraline 100 mg tablet TAKE 1 & 1/2 (ONE & ONE-HALF) TABLETS BY MOUTH ONCE DAILY active Not Available Not Available No t Available metronidazo le 500 mg tablet 06/19 completed Not Available Not Available Not Available ciprofloxac in 500 mg tablet TAKE 1 TABLET BY MOUTH EVERY 12 HOURS 09/06 completed Not Available Not Available Not Available sulfamethox azole 800 mg-trimetho prim 160 mg tablet TAKE 1 TABLET BY MOUTH EVERY 12 HOURS FOR 3 DAYS active Not Available Not Available No t Available omeprazole 40 mg capsule,del ayed release TAKE 1 CAPSULE BY MOUTH TWICE DAILY 06/19 completed Not Available Not Available Not Available aspirin 81 mg tablet,alexx yed release 01/31 completed Not Available Not Available Not Available carbamazepi ne 200 mg tablet TAKE 1 TABLET BY MOUTH EVERY 12 HOURS START WITH 200 MG ONCE DAILY FOR ONE WEEK. active Not Available Not Available No t Available amoxicillin 875 mg tablet TAKE 1 TABLET BY MOUTH EVERY 12 HOURS 09/06 completed Not Available Not Available Not Available famotidine 20 mg tablet TAKE 1 TABLET BY MOUTH TWICE DAILY 12/21 completed Not Available Not Available Not Available amlodipine 10 mg tablet TAKE 1 TABLET BY MOUTH ONCE DAILY active Not Available Not Available No t Available doxycycline monohydrate 100 mg capsule 06/19 completed Not Available Not Available Not Available pantoprazol e 40 mg tablet,alexx yed release TAKE 1 TABLET BY MOUTH TWICE DAILY 12/19 completed Not Available Not Available Not Available hyoscyamine sulfate 0.125 mg tablet TAKE 1 TABLET BY MOUTH 4 TIMES DAILY 12/19 completed Not Available Not Available Not Available buspirone 10 mg tablet 06/19 completed Not Available Not Available Not Available prednisone 50 mg tablet 06/19 completed Not Available Not Available Not Available gabapentin 300 mg capsule TAKE 2 CAPSULES BY MOUTH THREE TIMES DAILY active Not Available Not Available No t Available omeprazole 20 mg capsule,del ayed release TAKE 2 CAPSULES BY MOUTH ONCE DAILY 12/19 completed Not Available Not Available Not Available montelukast 10 mg tablet 06/19 completed Not Available Not Available Not Available methylpredn isolone 4 mg tablets in a dose pack TAKE BY MOUTH DIRECTED ON INSIDE OF PACKAGE 09/06 completed Not Available Not Available Not Available albuterol sulfate HFA 90 mcg/actuati on aerosol inhaler 06/19 completed Not Available Not Available Not Available cefdinir 300 mg capsule TAKE 1 CAPSULE BY MOUTH EVERY 12 HOURS 01/31 completed Not Available Not Available Not Available fluticasone propionate 50 mcg/actuati on nasal spray,suspe nsion USE 1 SPRAY(S) IN EACH NOSTRIL ONCE DAILY 06/19 completed Not Available Not Available Not Available buspirone 15 mg tablet TAKE 3 TABLETS BY MOUTH ONCE DAILY active Not Available Not Available No t Available aripiprazol e 5 mg tablet TAKE 1 TABLET BY MOUTH ONCE DAILY 01/31 completed Not Available Not Available Not Available Flovent HFA 220 mcg/actuati on aerosol inhaler INHALE 1 PUFF BY MOUTH TWICE DAILY 06/19 completed Not Available Not Available Not Available Lyrica 150 mg capsule 06/19 completed Not Available Not Available Not Available chlorhexidi ne gluconate 0.12 % mouthwash SWISH AND SPIT 15ML FOR 30 SECONDS TWICE DAILY 06/19 completed Not Available Not Available Not Available Zoloft 09/06 completed Not Available Not Available Not Available aripiprazol e 2 mg tablet 06/19 completed Not Available Not Available Not Available Stimulant Laxative Plus 8.6 mg-50 mg tablet 12/21 completed Not Available Not Available Not Available Linzess 72 mcg capsule TAKE 1 CAPSULE BY MOUTH ONCE DAILY active Not Available Not Available No t Available Vitals Date Recorded Body mass index (BMI) Body height Body temperature Body weight Provider Name and Address Organization Details Last Updated DateTime 09/02/2020 32.6 kg/m2 157.48 cm 98 [degF] 28324.44 g Not Available [facility] 07/28/2022 21:16:04 Date Recorded Body height Body mass index (BMI) Body weight Body temperature Provider Name and Address Organization Details Last Updated DateTime 09/06/2024 160.02 cm 33.8 kg/m2 16382.42 g 97.5 [degF] Kristen Condon RN [facility] [employer] 09/06/2024 14:23:16 Date Recorded Body weight Body temperature Body mass index (BMI) Body height Provider Name and Address Organization Details Last Updated DateTime 12/22/2023 59852.66 g 99.2 [degF] 35.8 kg/m2 160.02 cm PAYTON Grossman [facility] [employer] [facility] 12/22/2023 14:24:53 Date Recorded Body height Body mass index (BMI) Body weight Body temperature Provider Name and Address Organization Details Last Updated DateTime 2024 160.02 cm 35.6 kg/m2 05112.78 g 98.5 [degF] PAYTON Grossman [facility] [employer] [facility] 2024 15:24:08 Social History Question Answer Notes LastModified by Organizat [employer] Details LastModified Time Tobacco Smoking Status Former Smoker Not Available [facility] 07/28/2022 21:15:51 In The 14 Days Before Symptom Onset, Have You Had Close Contact With A Laboratory-confirm ed COVID-19 While That Case Was Ill? No [id number] Information not available 07/28/2022 In The 14 Days Before Symptom Onset, Have You Had Close Contact With A Person Who Is Under Investigation For COVID-19 While That Person Was Ill? No [id number] Information not available 07/28/2022 Sex: Unknown Functional Status Question Answer Note LastModified by Organizat [employer] Details LastModified Time What is your level of alcohol consumption? None [id number] Information not available 07/28/2022 Mental Status None recorded. Family History Nothing Reported Notes:NO ENT Medical History Condition Response MRSA N SLEEP APNEA N ALLERGIES/HAYFEVER N OTHER # 1 N LUNG DISEASE/DISORDER N INSOMNIA N RADIATION / CHEMOTHERAPY N COPD N HIGH CHOLESTEROL / HYPERLIPIDEMIA N HYPERTHYROIDISM N Other # 2 N NEUROLOGICAL PROBLEMS N BLOOD DISEASES N SURGERY N EAR OR HEARING PROBLEMS N HYPOTHYROIDISM N DEPRESSION (INCLUDING POST ) N HAVE YOU BEEN HOSPITALIZED OR SEEN IN [facility] ER IN THE PAST YEAR ? N STROKE/TIA N ULCERS N OBESITY N ANEURYSM N HISTORY WITH COMPLICATIONS WITH ANESTHES IA ? N USE OF BLOOD THINNERS N NO SIGNIFICANT PAST MEDICAL HISTORY N DIABETES, TYPE N PARATHYROID DISEASE N ENT Y SEASONAL ALLERGIES N HEARTBURN / REFLUX N HEPATITIS / LIVER DISEASE N SLEEP DISORDER N SEIZURES/EPILEPSY N HEADACHES/MIGRAINES N CHF N PACEMAKER N DIZZINESS N AIDS/HIV N HEART DISEASE/HEART PROBLEMS Y FRACTURES N HYPERTENSION Y CANCER: SPECIFY N BLOOD TRANSFUSION N ANEMIA/BLOOD DISORDER N ANESTHESIA COMPLICATIONS N CHRONIC EAR INFECTIONS N TUBERCULOSIS N Gynecological HistoryNo gynecological history recorded. Obstetrics History GPAL:G 0 P 0 0 0 0 Past Encounters Encounter ID Performer Location Encounter Start Date Encounter Closed Date Diagnosis/Indication Diagnosis SNOMED-CT Code Diagnosis ICD10 Code Diagnosis Note [id number] [facility] [address] [place] [address] 09/02/2020 00:00:00 09/02/2020 12:55:10 [id number] Ganga Greenwood MD [facility] [address] [place] [address] 12/22/2023 14:05:27 12/23/2023 09:05:14 Deviated nasal septum 470405147 J34.2 Chronic sinusitis 230403 00 J32.9 [id number] Ganga Greenwood MD [facility] [address] [place] [address] 2024 15:03:32 02/02/2024 11:24:34 Chronic sinusitis 38372830 J32.9 [id number] Ganga Greenwood MD [facility] [address] [place] [address] 09/06/2024 14:13:03 10/19/2024 08:48:24 Chronic frontal sinusitis 45258111 J32.1 Chronic et hmoidal sinusitis 55908797 J32.2 Chronic ma xillary sinusitis 52494141 J32.0 Chronic sp henoidal sinusitis 64568249 J32.3 Deviated nasal septum 12 8017409 J34.2 Health Concerns Section Related Observation LastModified by Organization Detai ls LastModified Time None Recorded Concern Status LastModified by Organization Details LastModified Time None Recorded Advance Directives Directive None Recorded Payers Encounter Date Sequence Insurance Name Policy Number Policy Mota Covered Member ID Mota Member ID Guarantor Name 12/22/2023 1 [facility] ON OR AFTER 11/27/20 (MEDICAID REPLACEMENT - HMO) Daria Mesa [id number] Daria Mesa 2024 1 [facility] ON OR AFTER 11/27/20 (MEDICAID REPLACEMENT - HMO) Daria Mesa [id number] Daria Mesa 09/06/2024 1 [facility] ON OR AFTER 11/27/20 (MEDICAID REPLACEMENT - HMO) Daria Mesa [id number] Daria Mesa Notes Date Note Type Note Provider Name and Address Organization Details Recorded Time 12/22/2023 text/html this patient reports left facial swelling and left nasal congestion for years. At an unspecified nasal operation 6 years ago. Ganga Greenwood MD [address] [place] [address], [phone], [employer] [facility] [employer] [facility] 12/22/2023 14:47:09 2024 text/html the CT scan demonstrated frontal and ethmoid sinusitis primarily. A deviated septum was also seen. She was given cefdinir before but is worried about the side effects and did not take it Ganga Greenwood MD [address], [place], [address], [employer] [facility] [employer] [facility] 2024 15:34:59 09/06/2024 text/html this patient was seen in January and now so she can not take it anymore. The biggest problem is her left facial swelling. Her CT Ganga Greenwood MD [address], [place], [address], [employer] [facility] [employer] [facility] 10/18/2024 14:07:19 OBGyn Episode No OBEpisode recorded.
--- OUTSIDE RECORDS SUMMARY | 2024-10-24 07:16 | XMS_ITS | Clinical Summary ---
Author Organization [facility] Address [address], [facility] [address] [place] [address] Phone Care Team Providers Care Credit Administrator Name Role Phone Pablo Tierney MD Primary Care Provider Allergies Active Allergy Reactions Criticality Noted Date Comments Levofloxacin In D5w Other (see Comments) 2017 Nerve pain in arms and legs, 2 wks after taking Medications pregabalin (LYRICA) 75 MG Capsule Take 75 mg by mouth 4 times daily. Active BusPIRone HCl (BUSPAR PO) Take 15 mg by mouth. Active sertraline (ZOLOFT) 50 MG Tablet Take 50 mg by mouth daily. Active amLODIPine (NORVASC) 10 MG Tablet Take 10 mg by mouth daily. Active ALPRAZolam (XANAX) 0.5 MG Tablet 0 12/07/2017 Active hyoscyamine (ANASPAZ, LEVSIN) 0.125 MG Tablet Take 1 Tab by mouth every 4 hours as needed for Cramping. 120 Tab 3 10/10/2018 Active sucralfate (CARAFATE) 1 GM Tablet Take 1 Tab by mouth every 6 hours. 120 Tab 3 10/16/2018 Active albuterol 108 (90 Base) MCG/ACT Aerosol Solution 09/17/2018 Active ARIPiprazole (ABILIFY) 5 MG Tablet Take 5 mg by mouth. 10/27/2018 Active citalopram (CELEXA) 40 MG Tablet Take 40 mg by mouth. Active fluticasone (FLONASE) 50 MCG/ACT Suspension USE 1 SPRAY(S) IN EACH NOSTRIL ONCE DAILY 11/02/2018 Active FLOVENT HFA 220 MCG/ACT Aerosol INHALE 1 PUFF BY MOUTH TWICE DAILY 3 12/07/2018 Active montelukast (SINGULAIR) 10 MG Tablet 09/12/2018 Active traZODone (DESYREL) 50 MG Tablet Take 50 mg by mouth. 10/27/2018 Active omeprazole (PRILOSEC) 40 MG CAPSULE DELAYED RELEASE Take 1 Cap by mouth 2 times daily. 60 Cap 3 02/09/2019 Active famotidine (PEPCID) 20 MG Tablet Take 1 Tab by mouth 2 times daily. 90 Tab 3 06/12/2019 Active Family History Medical History Relation Name Comments Suicide Attempts Father Colon Cancer Maternal Aunt colon Heart Attack Maternal Grandfather Colon Cancer Maternal Uncle colon Emphysema Mother Dementia Paternal Grandmother Relation Name Status Comments Father Maternal Aunt Maternal Grandfather Maternal Uncle Mother Alive Paternal Grandmother Social History Tobacco Use Types Packs/Day Years Used Date Smoking Tobacco: Former Cigarettes 1 20 0 10/01/2015 - 06/30/2018 Smokeless Tobacco: Never Tobacco Cessation:Ready to Q uit: No; Counseling Given: Yes Alcohol Use Standard Drinks/Week Comments No 0 (1 standard drink = 0.6 oz pur e alcohol) Comments No Sex and Gender Information Value Date Recorded Sex Assigned at Not on file Legal Sex Female 8:58 PM CDT Gender Identity Not on file Sexual Orientation Not on file 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 Not on file Not on file Last Filed Vital Signs Vital Sign Reading Time Taken Comments Blood Pressure 126/88 01/30/2019 1:53 PM CDT Pulse 78 01/30/2019 1:53 PM CDT Temperature 36.7 C (98.1 F) 01/30/2019 1:53 PM CDT Respiratory Rate 18 01/30/2019 1:53 PM CDT Oxygen Saturation 98% 01/30/2019 1:53 PM CDT Inhaled Oxygen Concentration - - Weight 93.4 kg (206 lb) 01/30/2019 1:53 PM CDT Height 157.5 cm (5' 2) 01/30/2019 1:53 PM CDT Body Mass Index 37.68 01/30/2019 1:53 PM CDT Plan of Treatment Health Maintenance Due Date Last Done Comments Hepatitis C Virus (HCV) Screening 1966 TdaP Immunization 1966 Hepatitis B Immunization (1 of 3 - 19+ 3-dose series) 1985 Cologuard 02/02/2016 Immunochemical Fecal Occult Blood 02/02/2016 Pneumococcal Immunization (5 0+ years) (1 of 1 - PCV) 02/02/2016 Zoster Immunization (1 of 2) 02/02/2016 Colonoscopy 10/10/2022 10/10/2017 Colorectal Cancer Screening 10/10/2022 Influenza Immunization (#1) 2024 SARS-COV-2 Immunization ( - 2023- season) 2024 05/21/2021, 04/22/2021 Respiratory Syncytial Virus (RSV) Immunization (Adult) (1 - 1-dose 75+ series) 2041 10/10/2017 Meningococcal Immunization (ACWY) Aged Out No longer eligible b ased on patient's age to complete this topic Rotavirus Immunization Aged Out No lo nger eligible based on patient's age to complete this topic Insurance MEDICAID [employer] Care Teams Credit Administrator Relationship Specialty Start Date End Date Pablo Tierney MD [address] [place] [address] PCP - General Pediatrics 09/08/17
== END 2024-10-24 07:13 | disposition home or self-care (01) ==
PROVIDERS: PCP Family Medicine; Visit Provider Family Medicine
DX: R31.29 Other microscopic hematuria (principal)
CPT/HCPCS: 76775